=== PATIENT | male | born 1970 | race Caucasian/White ===

== ENCOUNTER 2016-04-10 17:10 | Emergency (ER) | payer BC, OTHER ==
[2016-04-10 17:17] VITALS: RESP 18; TEMP 96.9
[2016-04-10] MEDS ORDERED: CEPHALEXIN 500MG STARTER PACK 4 CAP BTL PO STA (18:48)
[2016-04-10] MEDS ORDERED: DIPH,PERTUS(ACELL)TETVAC-LF 0.5 ML VIAL IM ONE (18:48)
--- NOTE | 2016-04-10 18:59 | ED ---
General Adult HPI - General Chief complaint: Wound/Laceration Stated complaint: Fall/IHS Time Seen by Provider: 04/10/16 17:35 Source: patient, family, RN notes reviewed Mode of arrival: EMS Limitations: no limitations - History of Present Illness Initial comments: Chief complaint and history of present illness a 45-year-old male who reports while on the job slipped on the step going into his truck bumping both anterior tibial surfaces. Presents with a bruise to the right significant laceration to the left measuring 5 inches or 12.5 cm. - Related Data Home Medications Medication Instructions Recorded Confirmed Escitalopram Oxalate [Lexapro] 20 mg PO DAILY 04/10/16 04/10/16 buPROPion HCL [Wellbutrin XL] 300 mg PO DAILY 04/10/16 04/10/16 clonazePAM [KlonoPIN] 0.25 mg PO DAILY 04/10/16 04/10/16 clonazePAM [KlonoPIN] 1 mg PO HS 04/10/16 04/10/16 Previous Rx's Medication Instructions Recorded Cephalexin [Keflex] 500 mg PO Q6HR #20 cap 04/10/16 Ibuprofen [Motrin] 800 mg PO Q8HR PRN #20 tab 04/10/16 Allergies Allergy/AdvReac Type Severity Reaction Status Date / Time Sulfa (Sulfonamide Allergy Unknown Verified 04/10/16 17:17 Antibiotics) Review of Systems ROS Statement: Those systems with pertinent positive or pertinent negative responses have been documented in the HPI. Review of systems no complaint of headache chest pain shortness breath GI/ problems no neuro deficits. Patient is alert and oriented. No other complaints at this time. Past medical problems patient denies any chronic medical problems. Has history of asthma. He is at hernia repair and tonsillectomy. Family history noncontributory is ALLERGIES to sulfa drugs. Encouraged not to smoke ROS Other: All systems not noted in ROS Statement are negative. Past Medical History Past Medical History: Asthma History of Any Multi-Drug Resistant Organisms: None Reported Past Surgical History: Hernia Repair, Tonsillectomy Past Psychological History: No Psychological Hx Reported Smoking Status: Never smoker Past Alcohol Use History: None Reported Past Drug Use History: None Reported General Exam - General Exam Comments Initial Comments: General: The patient is awake and alert, in no distress, and does not appear acutely ill. Presents with a 12 cm laceration distal third left leg. Vital show temperature 96.9 pulse 95 respiratory rate 18 pulse ox 94% on room air blood pressure 130/77 elevated systolic noted patient be advised to follow-up with his family physician. Plus he obviously in pain from his laceration. Eye: Pupils are equal, t, extra-ocular movements are intact; there is normal conjunctiva bilaterally. No signs of icterus. Ears, nose, mouth and throat: There are moist mucous membranes Neck: No complaint of headache. The neck is supple, there is no tenderness . No complaint of neck pain Cardiovascular: There is a regular rate and rhythm. No murmur, rub or gallop is appreciated. No complaint of palpitations Respiratory: Lungs are clear to auscultation, respirations are non-labored, breath sounds are equal. No wheezes, stridor, rales, or rhonchi. Gastrointestinal: Soft, non-distended, non-tender abdomen without masses or organomegaly noted. There is no rebound or guarding present. No abdominal pain Back: There is no tenderness to palpation in the midline. Denies back pain at this time. Musculoskeletal: Positive or laceration distal third left anterior tibial surface. Neurovascular status of foot is intact. Right lower leg bruise without laceration. Neurological: CN II-XII intact, There are no obvious motor or sensory deficits. Coordination appears grossly intact. Speech is normal. Alert and oriented no focal or lateralizing findings Limitations: no limitations Course Vital Signs 04/10/16 04/10/16 04/10/16 17:13 18:32 19:17 Temperature 96.9 F L Pulse Rate 95 96 96 Respiratory 18 16 18 Rate Blood Pressure 130/77 123/75 123/73 O2 Sat by Pulse 94 L 95 95 Oximetry Procedures - Procedures Initial comment: Procedure; sterile technique and 1% lidocaine was used to numb the large laceration measuring 12 cm to the anterior left tibial surface. Wound edges were cleaned with scissors. The wound was irrigated well with normal saline and Betadine. Hemostasis obtained with suture material. Inner layer of 4-0 Vicryl, 5 sutures were placed. Outer layer of approximately 20 mattress style sutures of 3-0 nylon were placed. Mild pressure bandage applied. Patient be told to keep his leg elevated. Bandage to be removed in 2 days. Patient advised take medications as directed return in 12 days to have sutures removed or illicit any signs of infection. Dr. Lawton Medical Decision Making - Medical Decision Making X-ray of the left tib-fib was done AP lateral views and reviewed by radiologist his impression is correlate for cellulitis and edema, follow-up recommended. As read by Dr. Lo. Radiolucency most likely air in the soft tissue from the 12 cm laceration to the anterior tibial surface. Patient be placed on ibuprofen 800 one tablet 3 times daily for pain. And cephalexin 500 4 times a day for one week. Sutures are to be removed in 12 days or earlier should be signs of infection. Disposition Clinical Impression: Laceration of leg Disposition: HOME SELF-CARE Condition: Fair Instructions: Laceration (ED) Additional Instructions: Keep leg elevated. Remove bandage in 2 days. Reports signs of infection. Take cephalexin 504 times daily for 1 week. Report signs of infection to her family doctor or emergency room. Take ibuprofen for pain Prescriptions: Cephalexin [Keflex] 500 mg PO Q6HR #20 cap Ibuprofen [Motrin] 800 mg PO Q8HR PRN #20 tab PRN Reason: Pain Time of Disposition: 19:52
--- NOTE | 2016-04-10 19:20 | XR ---
Left leg HISTORY: Laceration 2 views of the left leg and 4 images There is lucency in the soft tissues present. Bone mineralization, joint spaces and alignment are librado ntained. No radiopaque foreign body. IMPRESSION: Correlate for cellulitis and edema, follow-up recommended.
[2016-04-10 19:45] VITALS: BP 123/73; PULSE 96
[2016-04-10] MEDS ORDERED: IBUPROFEN 800 MG TAB PO STA (19:51)
== END 2016-04-10 20:10 | disposition home or self-care (01) ==
LOC: EC 17:10
DX: S81.812A Laceration without foreign body, left lower leg, initial encounter (principal); S80.11XA Contusion of right lower leg, initial encounter; W22.09XA Striking against other stationary object, initial encounter; Z23 Encounter for immunization; Z79.899 Other long term (current) drug therapy; Z88.2 Allergy status to sulfonamides
CPT/HCPCS: 12034; 90471; 90715; 99283

== ENCOUNTER 2016-04-16 11:01 | Inpatient (IN) | payer BC, OTHER ==
[2016-04-16] MEDS ORDERED: IV VANCOMYCIN PER PHARMACY 1 EACH MISC MISCELLANE PRN (11:39)
[2016-04-16] MEDS ORDERED: SODIUM CHLORIDE 0.9% 1,000 ML IV STA ×2 (11:39)
--- NOTE | 2016-04-16 11:48 | ED ---
General Adult HPI - General Chief complaint: Extremity Injury, Lower Stated complaint: leg infection Time Seen by Provider: 04/16/16 11:28 Source: patient, RN notes reviewed, old records reviewed Mode of arrival: ambulatory Limitations: no limitations - History of Present Illness Initial comments: This is a 45-year-old male ER for evaluation. The patient presents for evaluation of wound care bilateral lower extremity injury. Patient has no specific medical is medical history of diabetes. Patient coming in after a slip and fall, sustaining laceration to anterior schwab, he did have lacerations repaired with sutures, patient was taking antibiotics but over the weekend his legs became increased in both swelling and redness, and became warm to touch. Patient follow-up with wound care today and was sent to emergency room for further evaluation and management. Patient denies any generalized fevers. No is real pain but states the swelling and increasing redness have him concerned. No drainage from either site - Related Data Home Medications Medication Instructions Recorded Confirmed Escitalopram Oxalate [Lexapro] 20 mg PO DAILY 04/10/16 04/16/16 buPROPion HCL [Wellbutrin XL] 300 mg PO DAILY 04/10/16 04/16/16 clonazePAM [KlonoPIN] 0.5 mg PO QAM 04/10/16 04/16/16 Amoxic-Pot Clav 875-125Mg 1 tab PO Q12H 04/16/16 04/16/16 [Augmentin 875-125] clonazePAM [KlonoPIN] 1 mg PO HS 04/16/16 04/16/16 Previous Rx's Medication Instructions Recorded Ibuprofen [Motrin] 800 mg PO Q8HR PRN #20 tab 04/10/16 Allergies Allergy/AdvReac Type Severity Reaction Status Date / Time Sulfa (Sulfonamide Allergy Unknown Verified 04/16/16 11:40 Antibiotics) Review of Systems ROS Statement: Those systems with pertinent positive or pertinent negative responses have been documented in the HPI. ROS Other: All systems not noted in ROS Statement are negative. Past Medical History Past Medical History: Asthma History of Any Multi-Drug Resistant Organisms: None Reported Past Surgical History: Hernia Repair, Tonsillectomy Past Psychological History: No Psychological Hx Reported Smoking Status: Never smoker Past Alcohol Use History: None Reported Past Drug Use History: None Reported General Exam Limitations: no limitations General appearance: alert, in no apparent distress Head exam: Present: atraumatic, normocephalic, normal inspection Eye exam: Present: normal appearance, PERRL, EOMI. Absent: scleral icterus, conjunctival injection, periorbital swelling ENT exam: Present: normal exam, mucous membranes moist Neck exam: Present: normal inspection. Absent: tenderness, meningismus, lymphadenopathy Respiratory exam: Present: normal lung sounds bilaterally. Absent: respiratory distress, wheezes, rales, rhonchi, stridor Cardiovascular Exam: Present: regular rate, normal rhythm, normal heart sounds. Absent: systolic murmur, diastolic murmur, rubs, gallop, clicks GI/Abdominal exam: Present: soft, normal bowel sounds. Absent: distended, tenderness, guarding, rebound, rigid Extremities exam: Present: normal inspection, full ROM, normal capillary refill , other (Bilateral extremity warm and erythema anteriorly, sutures in place and left schwab, wound open and healing of the right chin, no drainage). Absent: tenderness, pedal edema, joint swelling, calf tenderness Back exam: Present: normal inspection Neurological exam: Present: alert, oriented X3, CN II-XII intact Psychiatric exam: Present: normal affect, normal mood Skin exam: Present: warm, dry, intact, normal color. Absent: rash Course Vital Signs 04/16/16 11:20 Temperature 98.6 F Pulse Rate 93 Respiratory 18 Rate Blood Pressure 166/75 O2 Sat by Pulse 96 Oximetry - Reevaluation(s) Reevaluation #1: 04/16/16 11:46 Patient's prior ER visit is reviewed, suture care, antibiotic treatment Medical Decision Making - Medical Decision Making 45 milled ER for evaluation of erythema the legs, patient does have increasing infection and cellulitis of suture sites, patient be admitted for IV antibiotics and wound care - Lab Data Result diagrams: 04/16/16 12:31 - Radiology Data Radiology results: report reviewed (US BL LE no dvt, XR tib fib is negative for air), image reviewed Disposition Clinical Impression: Bilateral lower leg cellulitis, Traumatic open wound of left lower leg with infection, Laceration of leg Disposition: ADMITTED IP TO THIS [facility] Condition: Good
[2016-04-16] MEDS ORDERED: VANCOMYCIN 2,500 MG in SODIUM CHLORIDE 0.9% 500 ML IVPB ONE (12:00)
[2016-04-16 12:40] LABS: Basophils % (A) 0 %; CH 29.4; CHCM 32.7; Eosinophils # (A) 0.3 k/uL (0-0.7); Eosinophils % (A) 4 %; HCT 40.3 % (39.0-53.0); HDW 2.55; HGB 12.8 gm/dL (13.0-17.5); Luc # (Auto) 0.17; Luc % (Auto) 2; Lymphocytes # (A) 0.8 k/uL (1.0-4.8); Lymphocytes % (A) 11 %; MCH 28.8 pg (25.0-35.0); MCHC 31.8 g/dL (31.0-37.0); MCV 90.5 fL (80.0-100.0); Monocytes # (A) 0.6 k/uL (0-1.0); Monocytes % (A) 8 %; Neutrophils # (A) 5.4 k/uL (1.3-7.7); Neutrophils % (A) 74 %; RBC 4.46 m/uL (4.30-5.90); WBC 7.3 k/uL (3.8-10.6); WBC (Perox) 6.78
[2016-04-16 12:50] LABS: Anion Gap 10 mmol/L; Calcium 8.9 mg/dL (8.4-10.2); Carbon Dioxide 26 mmol/L (22-30); Chloride 106 mmol/L (98-107); Glucose 88 mg/dL (74-99); Non-African American GFR(MDRD) >60 (>60 ml/min/1.73 sqM); Sodium 142 mmol/L (137-145); Total Bilirubin 0.8 mg/dL (0.2-1.3); Total Protein 6.9 g/dL (6.3-8.2)
[2016-04-16 12:58] LABS: Phosphorous 3.8 mg/dL (2.5-4.5); Potassium 4.8 mmol/L (3.5-5.1)
[2016-04-16 12:59] LABS: ALT 43 U/L (21-72); AST 27 U/L (17-59); Alkaline Phosphatase 84 U/L (38-126); Blood Urea Nitrogen 15 mg/dL (9-20)
[2016-04-16 13:11] LABS: Creatine Kinase MB 0.7 ng/mL (0.0-2.4)
--- NOTE | 2016-04-16 15:41 | XR ---
EXAMINATION TYPE: XR tibia fibula bilateral DATE OF EXAM: 04/16/2016 3:34 PM CLINICAL HISTORY: Laceration injury one week ago with bilateral pain and swelling TECHNIQUE: Two views of the bilateral legs are obtained. COMPARISON: Left leg x-ray April 10, 2016. FINDINGS: There is no acute fracture or dislocation seen in either tibia or fibula. There is medial tibiofemoral compartment degenerative change in both knees with joint space loss and spurring, right worse than left. Calcification distal medial femoral condyle likely reflects old Brandon-Stieda in jury on the right. Mild to moderate joint space loss patellofemoral compartments bilaterally is seen. Some chronic periosteal reaction posterior tibial proximal diaphysis on the right is noted. Possible product of venous stasis. Bilateral ankle joints are felt within normal limits. Moderate to severe s ymmetric diffuse subcutaneous edema is present bilaterally. IMPRESSION: There is no acute or subacute fracture or dislocation seen in either tibia or fibula.
--- NOTE | 2016-04-16 16:23 | US ---
EXAMINATION TYPE: US venous doppler duplex LE DATE OF EXAM: 04/16/2016 4:06 PM COMPARISON: NONE CLINICAL HISTORY: Pain. Anterior calf wounds-- fell on ice and now infected, no hx of blood clots and not on any blood thinners SIDE PERFORMED: Bilateral VESSELS IMAGED: External Iliac Vein (EIV) Common Femoral Vein Deep Femoral Vein Greater Saphenous Vein * Femoral Vein Popliteal Vein Proximal Calf Veins (* superficial vessels) TECHNOLOGIST IMPRESSION: Right Leg: appears negative for DVT Left Leg: appears negative for DVT Satisfactory color flow, phasicity, and compressibility is seen in the above levels in the bilateral lower extremities. IMPRESSION: No ultrasound evidence for acute DVT in either lower extremity.
[2016-04-16] MEDS ORDERED: IBUPROFEN 800 MG TAB PO SCH (18:00)
[2016-04-16] MEDS: VANCOMYCIN 2,250 MG in SODIUM CHLORIDE 0.9% 500 ML IVPB SCH (20:24)
[2016-04-17] MEDS: VANCOMYCIN 2,250 MG in SODIUM CHLORIDE 0.9% 500 ML IVPB SCH ×3 (04:36→20:09)
[2016-04-17] MEDS: ENOXAPARIN 40 MG/0.4 ML SYRINGE SQ SCH (08:25)
--- NOTE | 2016-04-17 13:47 | HP ---
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 Patient was given Keflex by ER physician and was sent home and patient was also started on Augmentin. Patient's symptoms worsened and patient had increased redness in bilateral lower limb area, increased worsening cellulitis because of which patient came to the ER and patient is admitted for failure outpatient therapy for cellulitis and patient had a Doppler of the lower extremities, which did not show any DVT. It did not mention anything about inguinal lymph nodes. On clinical exam, patient does not have any inguinal lymph nodes either. Patient had a fever. Patient had features of sepsis when he came in and patient on IV vancomycin covering staph aureus. Patient had a little bit of improvement in the redness and swelling and once on the right side patient apparently had a serous drainage coming out of it. As of now area is dry7. If he has any serous drainage, will obtain cultures from that area and will continue with antibiotics for one more day, possibility of discharge tomorrow on Bactrim, depending on his improvement of fever. REVIEW OF SYSTEMS: DERMATOLOGIC: As described in HPI. CONSTITUTIONAL: No fever, no malaise, no fatigue. HEENT: No recent visual problems or hearing problems. Denied any sore throat. CARDIOVASCULAR: No chest pain, orthopnea, PND, no palpitations, no syncope. PULMONARY: No shortness of breath, no cough, no hemoptysis. GASTROINTESTINAL: No diarrhea, no nausea, no vomiting, no abdominal pain. Normoactive bowel sounds. NEUROLOGICAL: No headaches, no weakness, no numbness. HEMATOLOGICAL: Denies any bleeding or petechiae. GENITOURINARY: Denies any burning micturition, frequency, or urgency. MUSCULOSKELETAL/RHEUMATOLOGICAL: Denies any joint pain, swelling, or any muscle pain. ENDOCRINE: Denies any polyuria or polydipsia. The rest of the 14 point review of systems is negative. Home medications are: 1. Risperdal. 2. Augmentin. 3. Clonazepam. 4. Motrin. ALLERGIES: Allergic to SULFA DRUGS. PAST MEDICAL HISTORY: Asthma, obesity, hernia repair in the past, tonsillectomy. SOCIAL HISTORY: Denied any smoking, alcohol abuse or any drug abuse. FAMILY HISTORY: Significant for CVA/TIA. PHYSICAL EXAMINATION: Temperature 97.0, 24 hour T-max is 100.1, pulse of 92, respiratory rate of 20, blood pressure is 135/74, saturating at 96% on room air. DERMATOLOGIC: Patient has bilateral mid-schwab cellulitis with lacerations. On left side, patient had sutures with a long laceration. On the right side, patient has a partial skin breakdown with primary healing without any drainage. Patient does have redness in both the areas of lacerations with localized of temperature. GENERAL: The patient is alert and oriented x3, not in any acute distress. Well developed, well nourished. HEENT: Pupils are round and equally reacting to light. EOMI. No scleral icterus. No conjunctival pallor. Normocephalic, atraumatic. No pharyngeal erythema. No thyromegaly. CARDIOVASCULAR: S1 and S2 present. No murmurs, rubs, or gallops. PULMONARY: Chest is clear to auscultation, no wheezing or crackles. ABDOMEN: Soft, nontender, nondistended, normoactive bowel sounds. No palpable organomegaly. MUSCULOSKELETAL: No joint swelling or deformity. EXTREMITIES: No cyanosis, clubbing, or pedal edema. NEUROLOGICAL: Gross neurological examination did not reveal any focal deficits. LABORATORY DATA: CBC, CMP essentially within normal limits. ASSESSMENT AND PLAN: 1. Traumatic laceration followed by cellulitis of bilateral lower extremity, failed outpatient therapy. Patient is on IV antibiotics as mentioned above, vancomycin, which will be continued. If patient has improvement, patient will be discharged on Bactrim tomorrow. Hold off on Keflex and Augmentin that he was on. 2. Depression for which home medications will be continued. 3. Obesity, dietary counseling was provided.
[2016-04-17] MEDS: IBUPROFEN 800 MG TAB PO PRN (15:34)
[2016-04-17] MEDS ORDERED: VANCOMYCIN TROUGH DUE 1 EACH MISC MISCELLANE ONE (19:00)
[2016-04-18] MEDS: VANCOMYCIN 2,250 MG in SODIUM CHLORIDE 0.9% 500 ML IVPB SCH (04:07)
[2016-04-18 08:03] VITALS: BP 121/72; PULSE 96; RESP 18; TEMP 97.5
[2016-04-18] MEDS: ENOXAPARIN 40 MG/0.4 ML SYRINGE SQ SCH (08:10)
[2016-04-18] MEDS: IBUPROFEN 800 MG TAB PO PRN (08:13)
[2016-04-18] MEDS ORDERED: VANCOMYCIN 2,000 MG in SODIUM CHLORIDE 0.9% 500 ML IVPB SCH (12:00)
--- NOTE | 2016-04-19 08:00 | DS ---
DATE OF ADMISSION: 04/16/2016 DATE OF DISCHARGE: 04/18/2016 The patient is a 45-year-old admitted with bilateral schwab area of cellulitis, which improved with IV vancomycin and patient most probably has Staphylococcal cellulitis, but I cannot completely rule out strep cellulitis, because of which I asked him to go ahead and continue his Augmentin at home and take it for a week and along with that I will go ahead and give him double- strength Bactrim 2 tablets twice a day because of his weight. Patient will follow with his primary care physician Dr. Martina De La Fuente as an outpatient. Patient is otherwise clinically doing well, improved cellulitis in bilateral lower extremities. Patient was seen and examined on the day of discharge. Vitals are stable. PHYSICAL EXAMINATION: GENERAL: The patient is alert and oriented x3, not in any acute distress. Well developed, well nourished. HEENT: Pupils are round and equally reacting to light. EOMI. No scleral icterus. No conjunctival pallor. Normocephalic, atraumatic. No pharyngeal erythema. No thyromegaly. CARDIOVASCULAR: S1 and S2 present. No murmurs, rubs, or gallops. PULMONARY: Chest is clear to auscultation, no wheezing or crackles. ABDOMEN: Soft, nontender, nondistended, normoactive bowel sounds. No palpable organomegaly. MUSCULOSKELETAL: No joint swelling or deformity. EXTREMITIES: No cyanosis, clubbing, or pedal edema. NEUROLOGICAL: Gross neurological examination did not reveal any focal deficits. SKIN: No rashes. BILATERAL LEGS: Bilateral schwab cellulitis improved significantly. Patient has very little redness. ASSESSMENT AND PLAN: 1. Traumatic laceration complicated by cellulitis. 2. Depression. 3. Obesity. Patient will be discharged today. Please refer to my depart summary for further details of discharge medications. Activity as tolerated. Low calorie diet. Follow with Dr. Martina De La Fuente on the 23 of April at 11 a.m.
== END 2016-04-18 14:08 | disposition home or self-care (01) | DRG 603 ==
LOC: EC 11:01 → 4MS4W 11:48
PROVIDERS: ADMIT Hospitalist; ATTEND Hospitalist
DX: L03.116 Cellulitis of left lower limb (principal); S81.811A Laceration without foreign body, right lower leg, initial encounter; F32.9 Major depressive disorder, single episode, unspecified; S81.812A Laceration without foreign body, left lower leg, initial encounter; L03.115 Cellulitis of right lower limb; B95.8 Unspecified staphylococcus as the cause of diseases classified elsewhere; J45.909 Unspecified asthma, uncomplicated; Z88.2 Allergy status to sulfonamides; Z79.1 Long term (current) use of non-steroidal anti-inflammatories (NSAID); Z79.899 Other long term (current) drug therapy; Z82.3 Family history of stroke; Z71.3 Dietary counseling and surveillance; W01.0XXA Fall on same level from slipping, tripping and stumbling without subsequent striking against object, initial encounter
CPT/HCPCS: 80053; 80202; 82550; 82553; 83735; 84100; 85025; 87040; 87070; 87075; 87205; 93970; 96365; 99285

== ENCOUNTER → 2016-05-29 | Outpatient (CLI) | payer BC ==
[2016-05-29 09:34] VITALS: BMI 52.4
== END | disposition home or self-care (01) ==
LOC: MNTWWP 09:06
PROVIDERS: ATTEND Surgery
DX: M86.8X8 Other osteomyelitis, other site (principal); E66.9 Obesity, unspecified
CPT/HCPCS: 97802

== ENCOUNTER → 2016-05-31 | Outpatient (CLI) | payer BC, OTHER ==
--- NOTE | 2016-06-06 12:52 | P.ARTDOP ---
Arterial Doppler LOWER EXTREMITY ARTERIAL DOPPLER: DATE OF SERVICE: 05/31/2016 Reason for study: Bilateral lower leg ulcers. Doppler waveforms: Multiphasic bilaterally throughout. Pulse volume recording: Normal configuration. Pressure gradients: None. Ankle-brachial indices: Greater than 1 bilaterally. Toe pressures: [] on the right, [] on the left Impression: Normal limited study.
== END | disposition home or self-care (01) ==
LOC: RADUSWWP 07:45
PROVIDERS: ATTEND Surgery
DX: M79.604 Pain in right leg (principal); M79.605 Pain in left leg
CPT/HCPCS: 93923

== ENCOUNTER → 2016-06-07 | Outpatient (CLI) | payer BC, OTHER ==
--- NOTE | 2016-06-07 14:26 | NM ---
EXAMINATION TYPE: NM bone 3 phase DATE OF EXAM: 06/07/2016 1:27 PM COMPARISON: NONE HISTORY: Bilateral leg sores. Triple phase bone scintigraphy was performed following the injection of26 mCi Tc 99m MDP. Immediate images and 5 hours post injection images acquired. FINDINGS: Flow and pool images show symmetric distribution of activity. There is some increased activity at the level of the medial tibial plateau of the right tibia. There is increased activity about the left an kle. These findings are likely degenerative in nature. IMPRESSION: ACTIVITY DESCRIBED LIKELY DEGENERATIVE. I DO NOT SEE EVIDENCE OF OSTEOMYELITIS.
== END | disposition home or self-care (01) ==
LOC: RADNMMAIN 07:41
PROVIDERS: ATTEND Surgery
DX: M86.8X8 Other osteomyelitis, other site (principal)
CPT/HCPCS: 78315; A9503

== ENCOUNTER 2017-10-14 10:03 | Emergency (ER) | payer BC, OTHER ==
[2017-10-14] MEDS ORDERED: IBUPROFEN 600 MG TAB PO STA (11:30)
[2017-10-14] MEDS ORDERED: ACETAMINOPHEN TAB 500 MG TAB PO STA (11:30)
[2017-10-14] MEDS ORDERED: PIPERACILLIN-TAZOBACTAM 3.375 GM in DEXTROSE/WATER 1 50ML.BAG IVPB STA (11:30)
--- NOTE | 2017-10-14 11:34 | ED ---
General Adult HPI - General Chief complaint: Fever Stated complaint: Weak/chills Time Seen by Provider: 10/14/17 10:10 Source: patient, RN notes reviewed Mode of arrival: wheelchair Limitations: no limitations - History of Present Illness Initial comments: This is a 46-year-old male who presents emergency Department complaining of body aches a fever and left leg pain. Patient states that it started on night he had body aches felt real warm had some chills but after he got up he felt fine he felt fine Saturday and Saturday and all of a sudden again at 4 AM this morning he started having body aches and chills and vomited a couple times and complains that his left leg is tender to touch and red. The redness is on the anterior surface. He states no matter where you touch on his leg does hurt. Patient denies any cough patient denies any abdominal pain. Patient denies any current nausea. Patient denies headache patient denies numbness weakness. Patient denies any neck stiffness. Patient denies any ear pain patient denies any sore throat. Patient denies any dysuria hematuria urinary frequency. - Related Data Home Medications Medication Instructions Recorded Confirmed Escitalopram Oxalate [Lexapro] 20 mg PO DAILY 04/10/16 10/14/17 buPROPion HCL [Wellbutrin XL] 300 mg PO DAILY 04/10/16 10/14/17 clonazePAM [KlonoPIN] 0.5 mg PO QAM 04/10/16 10/14/17 clonazePAM [KlonoPIN] 1 mg PO HS PRN 04/16/16 10/14/17 Lisinopril [Zestril] 10 mg PO DAILY 10/14/17 10/14/17 Previous Rx's Medication Instructions Recorded Amoxicillin/Potassium Clav 1 each PO Q12HR #28 tab 10/14/17 [Augmentin 875-125 Tablet] Allergies Allergy/AdvReac Type Severity Reaction Status Date / Time Sulfa (Sulfonamide Allergy Unknown Verified 10/14/17 11:34 Antibiotics) Review of Systems ROS Statement: Those systems with pertinent positive or pertinent negative responses have been documented in the HPI. ROS Other: All systems not noted in ROS Statement are negative. Past Medical History Past Medical History: Asthma, Renal Disease Additional Past Medical History / Comment(s): Nephrolithiasis. wounds bilat LE pretibs from fall History of Any Multi-Drug Resistant Organisms: MRSA Date of last positivie culture/infection: 07/31/16 MDRO Source:: RIGHT LEG Past Surgical History: Hernia Repair, Tonsillectomy Additional Past Surgical History / Comment(s): Lithotripsy, bilateral inguinal hernia repain (one side done twice). Past Psychological History: Anxiety, Panic Disorder Smoking Status: Never smoker Past Alcohol Use History: None Reported Past Drug Use History: None Reported - Past Family History Mother Family Medical History: CVA/TIA Father Additional Family Medical History / Comment(s): Father in a snowmobile accident. General Exam - General Exam Comments Initial Comments: GENERAL: Patient is well-developed and well-nourished. Patient is nontoxic and well- hydrated and is in mild distress. ENT: Neck is soft and supple. No significant lymphadenopathy is noted. Oropharynx is clear. Moist mucous membranes. Neck has full range of motion without eliciting any pain. EYES: The sclera were anicteric and conjunctiva were pink and moist. Extraocular movements were intact and pupils were equal round and reactive to light. Eyelids were unremarkable. PULMONARY: Unlabored respirations. Good breath sounds bilaterally. No audible rales rhonchi or wheezing was noted. CARDIOVASCULAR: There is a regular rate and rhythm without any murmurs gallops or rubs. ABDOMEN: Soft and nontender with normal bowel sounds. No palpable organomegaly was noted. There is no palpable pulsatile mass. SKIN: Skin is clear with no lesions or rashes and otherwise unremarkable. NEUROLOGIC: Patient is alert and oriented x3. Cranial nerves II through XII are grossly intact. Motor and sensory are also intact. Normal speech, volume and content. Symmetrical smile. MUSCULOSKELETAL: Normal extremities with adequate strength and full range of motion. Left leg on the proximal medial aspect is erythematous and warm there is also tenderness at the calf. LYMPHATICS: No significant lymphadenopathy is noted PSYCHIATRIC: Normal psychiatric evaluation. Normal interpersonal interactions appears functionally intact in deals appropriately with others. No signs of depression. No signs of anxiety. Limitations: no limitations Course Vital Signs 10/14/17 10:11 Temperature 101.3 F H Pulse Rate 105 H Respiratory 20 Rate Blood Pressure 110/58 O2 Sat by Pulse 96 Oximetry Medical Decision Making - Medical Decision Making EKG shows sinus tachycardia at 102 bpm CA interval 146 dresses under QT intervals 352 QTC is 458. Patient's EKG shows some Q waves in leads [address] segment elevation or depression. Ultrasound of the leg showed no DVT. Chest x-ray showed no acute infiltrate. I gave the patient Zosyn in the ER. - Lab Data Result diagrams: 10/14/17 11:55 10/14/17 11:55 Lab Results 10/14/17 10/14/17 10/14/17 Range/Units 11:55 11:55 11:55 WBC 17.4 H (3.8-10.6) k/uL RBC 4.76 (4.30-5.90) m/uL Hgb 13.8 (13.0-17.5) gm/dL Hct 41.9 (39.0-53.0) % MCV 88.1 (80.0-100.0) fL MCH 29.1 (25.0-35.0) pg MCHC 33.0 (31.0-37.0) g/dL RDW 13.0 (11.5-15.5) % Plt Count 212 (150-450) k/uL Neutrophils % 92 % Lymphocytes % 2 % Monocytes % 5 % Eosinophils % 0 % Basophils % 0 % Neutrophils # 15.9 H (1.3-7.7) k/uL Lymphocytes # 0.4 L (1.0-4.8) k/uL Monocytes # 0.9 (0-1.0) k/uL Eosinophils # 0.1 (0-0.7) k/uL Basophils # 0.0 (0-0.2) k/uL PT (9.0-12.0) sec INR (<1.2) APTT (22.0-30.0) sec Sodium 136 L (137-145) mmol/L Potassium 4.0 (3.5-5.1) mmol/L Chloride 105 (98-107) mmol/L Carbon Dioxide 23 (22-30) mmol/L Anion Gap 8 mmol/L BUN 17 (9-20) mg/dL Creatinine 0.70 (0.66-1.25) mg/dL Est GFR (CKD-EPI)AfAm >90 (>60 ml/min/1.73 sqM) Est GFR (CKD-EPI)NonAf >90 (>60 ml/min/1.73 sqM) Glucose 122 H (74-99) mg/dL Plasma Lactic Acid Tonny 0.8 (0.7-2.0) mmol/L Calcium 8.8 (8.4-10.2) mg/dL Total Bilirubin 1.0 (0.2-1.3) mg/dL AST 18 (17-59) U/L ALT 33 (21-72) U/L Alkaline Phosphatase 65 (38-126) U/L Total Protein 6.0 L (6.3-8.2) g/dL Albumin 3.5 (3.5-5.0) g/dL Urine Color Urine Appearance (Clear) Urine pH (5.0-8.0) Ur Specific [place] (1.001-1.035) Urine Protein (Negative) Urine Glucose (UA) (Negative) Urine Ketones (Negative) Urine Blood (Negative) Urine Nitrite (Negative) Urine Bilirubin (Negative) Urine Urobilinogen (<2.0) mg/dL Ur Leukocyte Esterase (Negative) Urine RBC (0-5) /hpf Urine WBC (0-5) /hpf Amorphous Sediment (None) /hpf Urine Bacteria (None) /hpf Urine Mucus (None) /hpf 10/14/17 10/14/17 Range/Units 11:55 12:16 WBC (3.8-10.6) k/uL RBC (4.30-5.90) m/uL Hgb (13.0-17.5) gm/dL Hct (39.0-53.0) % MCV (80.0-100.0) fL MCH (25.0-35.0) pg MCHC (31.0-37.0) g/dL RDW (11.5-15.5) % Plt Count (150-450) k/uL Neutrophils % % Lymphocytes % % Monocytes % % Eosinophils % % Basophils % % Neutrophils # (1.3-7.7) k/uL Lymphocytes # (1.0-4.8) k/uL Monocytes # (0-1.0) k/uL Eosinophils # (0-0.7) k/uL Basophils # (0-0.2) k/uL PT 11.5 (9.0-12.0) sec INR 1.2 H (<1.2) APTT 24.6 (22.0-30.0) sec Sodium (137-145) mmol/L Potassium (3.5-5.1) mmol/L Chloride (98-107) mmol/L Carbon Dioxide (22-30) mmol/L Anion Gap mmol/L BUN (9-20) mg/dL Creatinine (0.66-1.25) mg/dL Est GFR (CKD-EPI)AfAm (>60 ml/min/1.73 sqM) Est GFR (CKD-EPI)NonAf (>60 ml/min/1.73 sqM) Glucose (74-99) mg/dL Plasma Lactic Acid Tonny (0.7-2.0) mmol/L Calcium (8.4-10.2) mg/dL Total Bilirubin (0.2-1.3) mg/dL AST (17-59) U/L ALT (21-72) U/L Alkaline Phosphatase (38-126) U/L Total Protein (6.3-8.2) g/dL Albumin (3.5-5.0) g/dL Urine Color Yellow Urine Appearance Clear (Clear) Urine pH 6.5 (5.0-8.0) Ur Specific [place] 1.023 (1.001-1.035) Urine Protein 1+ H (Negative) Urine Glucose (UA) Negative (Negative) Urine Ketones Negative (Negative) Urine Blood Moderate H (Negative) Urine Nitrite Negative (Negative) Urine Bilirubin Negative (Negative) Urine Urobilinogen <2.0 (<2.0) mg/dL Ur Leukocyte Esterase Negative (Negative) Urine RBC 92 H (0-5) /hpf Urine WBC 1 (0-5) /hpf Amorphous Sediment Rare H (None) /hpf Urine Bacteria Rare H (None) /hpf Urine Mucus Few H (None) /hpf Disposition Clinical Impression: Left leg cellulitis, Hematuria Disposition: HOME SELF-CARE Instructions: Cellulitis (ED), Hematuria (ED) Prescriptions: Amoxicillin/Potassium Clav [Augmentin 875-125 Tablet] 1 each PO Q12HR #28 tab Is patient prescribed a controlled substance at d/c from ED?: No Referrals: Martina De La Fuente DO [Primary Care Provider] - 1-2 days Time of Disposition: 13:38
[2017-10-14] MEDS: SODIUM CHLORIDE 0.9% 500 ML IV SCH (12:09)
[2017-10-14 12:13] LABS: ALT 33 U/L (21-72); AST 18 U/L (17-59); Albumin 3.5 g/dL (3.5-5.0); Alkaline Phosphatase 65 U/L (38-126); Anion Gap 8 mmol/L; Blood Urea Nitrogen 17 mg/dL (9-20); Calcium 8.8 mg/dL (8.4-10.2); Carbon Dioxide 23 mmol/L (22-30); Chloride 105 mmol/L (98-107); Glucose 122 mg/dL (74-99); Sodium 136 mmol/L (137-145)
[2017-10-14 12:16] LABS: INR 1.2 (<1.2); Partial Thromboplastin Time 24.6 sec (22.0-30.0); Prothrombin Time 11.5 sec (9.0-12.0)
[2017-10-14 12:21] LABS: Basophils % (A) 0 %; Eosinophils # (A) 0.1 k/uL (0-0.7); Eosinophils % (A) 0 %; HCT 41.9 % (39.0-53.0); HGB 13.8 gm/dL (13.0-17.5); Lymphocytes # (A) 0.4 k/uL (1.0-4.8); Lymphocytes % (A) 2 %; MCH 29.1 pg (25.0-35.0); MCV 88.1 fL (80.0-100.0); Mean Platelet Volume 6.4; Monocytes # (A) 0.9 k/uL (0-1.0); Monocytes % (A) 5 %; Neutrophils # (A) 15.9 k/uL (1.3-7.7); Neutrophils % (A) 92 %; Platelet Count 212 k/uL (150-450); RBC 4.76 m/uL (4.30-5.90); WBC 17.4 k/uL (3.8-10.6)
--- NOTE | 2017-10-14 12:31 | XR ---
EXAMINATION TYPE: XR chest 2V DATE OF EXAM: 10/14/2017 COMPARISON: NONE HISTORY: Fever, vomiting, weakness, and lower extremity swelling TECHNIQUE: Frontal and lateral views of the chest are obtained. FINDINGS: There is minimal linear left basilar subsegmental atelectasis. There is no focal air space opacity, pleural effusion, or pneumothorax seen. The cardiac silhouette size is upper limits of nor mal. The osseous structures are grossly intact. IMPRESSION: Minimal left basilar subsegmental atelectasis, otherwise no acute cardiopulmonary proces s.
[2017-10-14 12:37] LABS: Amorphous Sediment,Urine Rare /hpf; Appearance,Urine Clear (Clear); Bacteria,Urine Rare /hpf; Bilirubin,Urine Negative (Negative); Blood,Urine Moderate (Negative); Color,Urine Yellow; Glucose,Urine (UA) Negative (Negative); Ketones,Urine Negative (Negative); Leukocyte Esterase,Urine Negative (Negative); Mucus,Urine Few /hpf; Nitrite,Urine Negative (Negative); PH, Urine 6.5 (5.0-8.0); Protein,Urine 1+ (Negative); RBC,Urine 92 /hpf (0-5); Specific Gravity,Urine 1.023 (1.001-1.035); Urobilinogen,Urine <2.0 mg/dL (<2.0); WBC,Urine 1 /hpf (0-5)
--- NOTE | 2017-10-14 12:55 | US ---
EXAMINATION TYPE: US venous doppler duplex LE LT DATE OF EXAM: 10/14/2017 12:41 PM COMPARISON: NONE CLINICAL HISTORY: 45-year-old male Pain. Read, swollen left leg, fever, chills, morbidly obese SIDE PERFORMED: Left TECHNIQUE: The lower extremity deep venous system is examined utilizing real time linear array sonog ayaz with graded compression, doppler sonography and color-flow sonography. FINDINGS: VESSELS IMAGED: External Iliac Vein (EIV) Common Femoral Vein Deep Femoral Vein Greater Saphenous Vein * Femoral Vein Popliteal Vein Small Saphenous Vein * Proximal Calf Veins (* superficial vessels) Left Leg: Appears negative for DVT IMPRESSION: No evidence for DVT within the left lower extremity imaged from the groin to the upper calf.
[2017-10-14] MEDS ORDERED: AMOXIC-POT CLAV 875-125MG 1 EACH TAB PO STA (13:57)
[2017-10-14] MEDS ORDERED: cefTRIAXone IN SWFI 1,000 MG/10 ML SYRINGE IVP STA (13:58)
[2017-10-14 14:02] VITALS: PULSE 89; RESP 18; TEMP 97.8
[2017-10-14 14:23] VITALS: BP 124/66
== END 2017-10-14 14:22 | disposition home or self-care (01) ==
LOC: EC 10:03
DX: L03.116 Cellulitis of left lower limb (principal); R31.9 Hematuria, unspecified; R11.10 Vomiting, unspecified; Z79.899 Other long term (current) drug therapy; F41.0 Panic disorder [episodic paroxysmal anxiety]; Z86.14 Personal history of Methicillin resistant Staphylococcus aureus infection; Z88.2 Allergy status to sulfonamides; R00.0 Tachycardia, unspecified
CPT/HCPCS: 36415; 93005; 80053; 83605; 85025; 85610; 85730; 81001; 87040; 87086; 71046; 93971; 99284; 96365; 96366; 96375; J0696; J2543

== ENCOUNTER 2017-10-15 18:51 | Inpatient (IN) | payer BC, OTHER ==
[2017-10-15] MEDS ORDERED: VANCOMYCIN IV PER PHARMACY 1 EACH MISC MISCELLANE PRN (19:58)
[2017-10-15] MEDS ORDERED: SODIUM CHLORIDE 0.9% 1,000 ML IV STA (20:00)
[2017-10-15] MEDS ORDERED: IBUPROFEN 600 MG TAB PO STA (20:02)
--- NOTE | 2017-10-15 20:02 | ED ---
General Adult HPI - General Chief complaint: Extremity Injury, Lower Stated complaint: cellulitis recheck Time Seen by Provider: 10/15/17 19:44 Source: patient, RN notes reviewed Mode of arrival: wheelchair Limitations: no limitations - History of Present Illness Initial comments: This is a 46-year-old male who presents to the emergency department with chief complaint of worsening cellulitis. Patient was seen here in the emergency department yesterday and diagnosed with left lower extremity cellulitis. Patient was discharged home with Augmentin. Patient states that the pain and redness of the left leg is significantly spread. He reports increased body aches and chills. He states he has been febrile. Denies any chest pain or shortness of breath, abdominal pain, nausea or vomiting, diarrhea or constipation, numbness or tingling. Patient denies any recent injuries or trauma. - Related Data Home Medications Medication Instructions Recorded Confirmed Escitalopram Oxalate [Lexapro] 20 mg PO DAILY 04/10/16 10/14/17 buPROPion HCL [Wellbutrin XL] 300 mg PO DAILY 04/10/16 10/14/17 clonazePAM [KlonoPIN] 0.5 mg PO QAM 04/10/16 10/14/17 clonazePAM [KlonoPIN] 1 mg PO HS PRN 04/16/16 10/14/17 Lisinopril [Zestril] 10 mg PO DAILY 10/14/17 10/14/17 Previous Rx's Medication Instructions Recorded Amoxicillin/Potassium Clav 1 each PO Q12HR #28 tab 10/14/17 [Augmentin 875-125 Tablet] Allergies Allergy/AdvReac Type Severity Reaction Status Date / Time Sulfa (Sulfonamide Allergy Unknown Verified 10/14/17 11:34 Antibiotics) Review of Systems ROS Statement: Those systems with pertinent positive or pertinent negative responses have been documented in the HPI. ROS Other: All systems not noted in ROS Statement are negative. Past Medical History Past Medical History: Asthma, Renal Disease Additional Past Medical History / Comment(s): Nephrolithiasis. wounds bilat LE pretibs from fall History of Any Multi-Drug Resistant Organisms: MRSA Date of last positivie culture/infection: 07/31/16 MDRO Source:: RIGHT LEG Past Surgical History: Hernia Repair, Tonsillectomy Additional Past Surgical History / Comment(s): Lithotripsy, bilateral inguinal hernia repain (one side done twice). Past Psychological History: Anxiety, Panic Disorder Smoking Status: Never smoker Past Alcohol Use History: None Reported Past Drug Use History: None Reported - Past Family History Mother Family Medical History: CVA/TIA Father Additional Family Medical History / Comment(s): Father in a snowmobile accident. General Exam - General Exam Comments Initial Comments: General: Awake and alert, well-developed; in no apparent distress. HEENT: Head atraumatic, normocephalic. Pupils are equal, round and reactive to light. Extraocular movements intact. Oropharynx moist without erythema or exudate. Neck: Supple. Normal ROM. Cardiovascular: Regular rate and rhythm. No murmurs, rubs or gallops. Chest symmetrical. Respiratory: Lungs clear to auscultation bilaterally. No wheezes, rales or rhonchi. Normal respiratory effort with no use of accessory muscles. Musculoskeletal: Normal range of motion of bilateral upper and lower extremities. Skin: Diffuse erythema, tenderness, swelling and warmth of the left lower extremity below the knee. Old healed transverse scar across the left schwab is noted. Sensation is intact. Pedal pulses are 2+ equal and palpable bilaterally. Neurological: Alert and oriented x3. CN II-XII grossly intact. Speech is fluent and answers are appropriate. No focal neuro deficits. Psychiatric: Normal mood and affect. No overt signs of depression or anxiety noted. Limitations: no limitations Course Vital Signs 10/15/17 19:06 Temperature 101.2 F H Pulse Rate 110 H Respiratory 20 Rate Blood Pressure 110/71 O2 Sat by Pulse 96 Oximetry Medical Decision Making - Medical Decision Making This is a 46-year-old male who presents to the emergency department with chief complaint of worsening cellulitis. Patient was diagnosed with left lower chimneys cellulitis yesterday. He was started on Augmentin. Patient presents to the emergency department complaining of spreading redness and pain. Complains of fevers, chills and body aches. On physical examination, there is diffuse erythema, swelling, tenderness and warmth of the left lower extremity. I did review of a picture that his had taken from yesterday. There is definite spreading of the cellulitis. Patient is neurovascularly intact. Patient started on vancomycin and Zosyn. On review of patient's previous visit , ultrasound venous Doppler of the extremity was obtained which revealed no evidence for an acute DVT. Patient will be admitted to Dr. Malin's group for left lower extremity cellulitis. Dr. Lacy's is consulted. Patient is in agreement for admission. He is in no acute distress. - Lab Data Result diagrams: 10/15/17 20:00 10/15/17 20:00 Lab Results 10/15/17 10/15/17 10/15/17 Range/Units 20:00 20:00 20:00 WBC 14.4 H (3.8-10.6) k/uL RBC 4.51 (4.30-5.90) m/uL Hgb 13.0 (13.0-17.5) gm/dL Hct 40.5 (39.0-53.0) % MCV 89.8 (80.0-100.0) fL MCH 28.9 (25.0-35.0) pg MCHC 32.2 (31.0-37.0) g/dL RDW 13.1 (11.5-15.5) % Plt Count 207 (150-450) k/uL Neutrophils % 88 % Lymphocytes % 4 % Monocytes % 6 % Eosinophils % 1 % Basophils % 0 % Neutrophils # 12.7 H (1.3-7.7) k/uL Lymphocytes # 0.6 L (1.0-4.8) k/uL Monocytes # 0.8 (0-1.0) k/uL Eosinophils # 0.1 (0-0.7) k/uL Basophils # 0.0 (0-0.2) k/uL Sodium 136 L (137-145) mmol/L Potassium 4.1 (3.5-5.1) mmol/L Chloride 104 (98-107) mmol/L Carbon Dioxide 27 (22-30) mmol/L Anion Gap 5 mmol/L BUN 14 (9-20) mg/dL Creatinine 0.70 (0.66-1.25) mg/dL Est GFR (CKD-EPI)AfAm >90 (>60 ml/min/1.73 sqM) Est GFR (CKD-EPI)NonAf >90 (>60 ml/min/1.73 sqM) Glucose 111 H (74-99) mg/dL Plasma Lactic Acid Tonny 1.7 (0.7-2.0) mmol/L Calcium 8.6 (8.4-10.2) mg/dL Total Bilirubin 0.5 (0.2-1.3) mg/dL AST 17 (17-59) U/L ALT 34 (21-72) U/L Alkaline Phosphatase 75 (38-126) U/L Total Protein 5.7 L (6.3-8.2) g/dL Albumin 3.2 L (3.5-5.0) g/dL Disposition Clinical Impression: Left leg cellulitis Disposition: ADMITTED IP TO THIS HOSP Condition: Fair Is patient prescribed a controlled substance at d/c from ED?: No Referrals: Martina De La Fuente DO [Primary Care Provider] - 1-2 days Time of Disposition: 20:46
[2017-10-15] MEDS ORDERED: VANCOMYCIN 2,250 MG in SODIUM CHLORIDE 0.9% 500 ML IVPB STA (20:03)
[2017-10-15 20:17] LABS: Basophils % (A) 0 %; Eosinophils # (A) 0.1 k/uL (0-0.7); Eosinophils % (A) 1 %; HCT 40.5 % (39.0-53.0); Lymphocytes # (A) 0.6 k/uL (1.0-4.8); Lymphocytes % (A) 4 %; MCH 28.9 pg (25.0-35.0); MCHC 32.2 g/dL (31.0-37.0); MCV 89.8 fL (80.0-100.0); Mean Platelet Volume 6.7; Monocytes # (A) 0.8 k/uL (0-1.0); Monocytes % (A) 6 %; Neutrophils # (A) 12.7 k/uL (1.3-7.7); Neutrophils % (A) 88 %; Platelet Count 207 k/uL (150-450); RBC 4.51 m/uL (4.30-5.90); RDW 13.1 % (11.5-15.5); WBC 14.4 k/uL (3.8-10.6)
[2017-10-15 20:31] LABS: ALT 34 U/L (21-72); AST 17 U/L (17-59); Albumin 3.2 g/dL (3.5-5.0); Alkaline Phosphatase 75 U/L (38-126); Anion Gap 5 mmol/L; Blood Urea Nitrogen 14 mg/dL (9-20); Calcium 8.6 mg/dL (8.4-10.2); Carbon Dioxide 27 mmol/L (22-30); Chloride 104 mmol/L (98-107); Glucose 111 mg/dL (74-99); Potassium 4.1 mmol/L (3.5-5.1); Sodium 136 mmol/L (137-145); Total Bilirubin 0.5 mg/dL (0.2-1.3); Total Protein 5.7 g/dL (6.3-8.2)
[2017-10-15] MEDS ORDERED: IBUPROFEN 400 MG TAB PO PRN (20:43)
[2017-10-16] MEDS: PIPERACILLIN-TAZOBACTAM 3.375 GM in DEXTROSE/WATER 1 50ML.BAG IVPB SCH ×3 (00:37→15:16)
[2017-10-16] MEDS: KETOROLAC 30 MG/ML 1 ML VIAL IVP PRN ×4 (01:46→22:36)
[2017-10-16 02:59] VITALS: BMI 48.8
[2017-10-16] MEDS: VANCOMYCIN 2,250 MG in SODIUM CHLORIDE 0.9% 500 ML IVPB SCH ×3 (05:33→22:36)
[2017-10-16 07:58] LABS: Basophils % (A) 0 %; Eosinophils # (A) 0.1 k/uL (0-0.7); Eosinophils % (A) 1 %; HCT 37.3 % (39.0-53.0); HGB 12.3 gm/dL (13.0-17.5); Lymphocytes # (A) 0.6 k/uL (1.0-4.8); Lymphocytes % (A) 5 %; MCH 29.6 pg (25.0-35.0); MCHC 32.9 g/dL (31.0-37.0); Monocytes # (A) 0.7 k/uL (0-1.0); Monocytes % (A) 5 %; Neutrophils # (A) 11.3 k/uL (1.3-7.7); Neutrophils % (A) 87 %; Platelet Count 172 k/uL (150-450); RBC 4.15 m/uL (4.30-5.90); WBC 12.9 k/uL (3.8-10.6)
[2017-10-16 08:09] LABS: ALT 33 U/L (21-72); AST 16 U/L (17-59); Albumin 2.9 g/dL (3.5-5.0); Alkaline Phosphatase 71 U/L (38-126); Anion Gap 7 mmol/L; Blood Urea Nitrogen 14 mg/dL (9-20); Calcium 8.1 mg/dL (8.4-10.2); Carbon Dioxide 25 mmol/L (22-30); Chloride 104 mmol/L (98-107); Glucose 118 mg/dL (74-99); Potassium 4.5 mmol/L (3.5-5.1); Sodium 136 mmol/L (137-145); Total Bilirubin 0.5 mg/dL (0.2-1.3); Total Protein 5.3 g/dL (6.3-8.2)
[2017-10-16] MEDS: ACETAMINOPHEN TAB 325 MG TAB PO PRN ×2 (09:25→19:33)
[2017-10-16] MEDS: ONDANSETRON 4 MG/2 ML VIAL IVP PRN ×2 (09:26→15:19)
[2017-10-16] MEDS ORDERED: LISINOPRIL 10 MG TAB PO SCH (09:30)
--- NOTE | 2017-10-16 10:44 | P.CONS ---
History of Present Illness - Reason for Consult Consult date: 10/16/17 Cellulitis left leg - History of Present Illness This is a 46-year-old male patient who has had problems in the past with lower extremity cellulitis and nonhealing wounds. He was patient in the wound Center under the care of Dr. Trimble and discharge September 2016. He states he has had no problems with wound since that time until last week he bumped his schwab on the [employer] truck. He states it bled at the time we have added on he was feeling fever and chills and sweats and then became a low but better for a couple of days but on Saturday fever chills and sweats returned and he also vomited a couple times. He came into [facility] emergency center on Saturday. Chest x-ray showed no acute finding. Ultrasound of the lower extremity was negative for DVT. Patient was placed on Augmentin and discharged home. Patient has had worsening of redness and swelling to the left lower extremity and has continued to run fevers. He also has some nausea vomiting and he started having diarrhea after starting Augmentin. The diarrhea is a couple times a day only. Patient was started on Zosyn and vancomycin and admitted to the [facility] floor. On presentation, temperature was 101.3, leukocytosis of 12.9. Lactic acid 1.7, albumin 2.9. Urinalysis did show blood. Blood culture is showing no growth at 24 hours and urine cultures finalize with no growth. Review of Systems All systems: negative Constitutional: Reports anorexia, Reports chills, Reports fatigue, Reports fever , Reports poor appetite, Reports sweats Eyes: denies blurred vision, denies pain Ears, nose, mouth and throat: Denies dental pain, Denies headache, Denies mouth pain, Denies sore throat, Denies vertigo Cardiovascular: Denies chest pain, Denies lightheadedness, Denies shortness of breath, Denies syncope Respiratory: Denies cough, Denies cough with sputum, Denies dyspnea, Denies excessive sputum, Denies hemoptysis, Denies home oxygen, Denies wheezing Gastrointestinal: Reports diarrhea, Reports loss of appetite, Reports nausea, Reports vomiting, Denies abdominal pain Genitourinary: Denies dysuria Musculoskeletal: Denies frequent falls, Denies myalgias Integumentary: Reports wounds, Denies pruritus, Denies rash Neurological: Denies numbness, Denies weakness Psychiatric: Denies anxiety, Denies depression Endocrine: Denies fatigue, Denies weight change Past Medical History Past Medical History: Asthma Additional Past Medical History / Comment(s): Nephrolithiasis. wounds bilat LE pretibs from fall History of Any Multi-Drug Resistant Organisms: MRSA Year Discovered:: 07/31/16 MDRO Source:: RIGHT LEG Past Surgical History: Hernia Repair, Tonsillectomy Additional Past Surgical History / Comment(s): Lithotripsy, bilateral inguinal hernia repair (one side done twice). Multiple debridements of lower extremity wounds. Past Psychological History: Anxiety, Panic Disorder Additional Psychological History / Comment(s): Pt resides with his spouse and son. He is independent. He works for [employer]. Smoking Status: Never smoker Past Alcohol Use History: None Reported Additional Past Alcohol Use History / Comment(s): She is a lifelong nonsmoker. He denies any marijuana or street drug use. He works for [employer]. He lives at home with his and son. He does have outside cats but no other animal exposures. No recent travel. Past Drug Use History: None Reported - Past Family History Mother Family Medical History: CVA/TIA Father Additional Family Medical History / Comment(s): Father in a snowmobile accident. Medications and Allergies Home Medications Medication Instructions Recorded Confirmed Type Escitalopram Oxalate [Lexapro] 20 mg PO DAILY 04/10/16 10/15/17 History buPROPion HCL [Wellbutrin XL] 300 mg PO DAILY 04/10/16 10/15/17 History clonazePAM [KlonoPIN] 0.5 mg PO QAM 04/10/16 10/15/17 History Lisinopril [Zestril] 10 mg PO DAILY 10/14/17 10/15/17 History Amoxicillin/Potassium Clav 1 tab PO Q12HR #28 tab 10/15/17 10/15/17 Rx [Augmentin 875-125 Tablet] Allergies Allergy/AdvReac Type Severity Reaction Status Date / Time Sulfa (Sulfonamide Allergy Unknown Verified 10/15/17 21:11 Antibiotics) Physical Exam Vitals: Vital Signs Temp Pulse Pulse Resp BP BP Pulse Ox 10/16/17 07:52 96 18 10/16/17 05:55 99.8 F H 96 18 119/72 97 10/15/17 23:00 98.6 F 54 L 18 93/50 100 10/15/17 21:49 99.8 F H 100 16 154/74 97 10/15/17 19:06 101.2 F H 110 H 20 110/71 96 Intake and Output 10/15/17 10/16/17 10/16/17 22:59 06:59 14:59 Other: Voiding Method Toilet # Voids 1 Weight 163.293 kg Gen: This is a morbidly obese 46-year-old male. He is sitting up in bed and appears to be comfortable and in no acute distress. Noted that left lower leg is in a dependent position. HEENT: Head is atraumatic, normocephalic. Pupils equal, round. Sclerae is anicteric. Junk eloping. Mucous members of the mouth are moist. NECK: Supple. No JVD. No lymphadenopathy. No thyromegaly. LUNGS: Clear to auscultation. No wheezes or rhonchi. No intercostal retractions. HEART: Regular rate and rhythm. No murmur. ABDOMEN: Soft. Bowel sounds are present. No masses. No tenderness. EXTREMITIES: Dorsalis pedis is +2 bilaterally. Patient has erythema and edema to the pretibial and posterior calf area. There is a small scab on the pretibial area. No active drainage. Area is warm to the touch and tender. NEUROLOGICAL: Patient is awake, alert and oriented x3. Cranial nerves 2 through 12 are grossly intact. Results Results: Laboratory Results WBC 12.9 k/uL (3.8-10.6) H 10/16/17 07:10 RBC 4.15 m/uL (4.30-5.90) L 10/16/17 07:10 Hgb 12.3 gm/dL (13.0-17.5) L 10/16/17 07:10 Hct 37.3 % (39.0-53.0) L 10/16/17 07:10 MCV 90.0 fL (80.0-100.0) 10/16/17 07:10 MCH 29.6 pg (25.0-35.0) 10/16/17 07:10 MCHC 32.9 g/dL (31.0-37.0) 10/16/17 07:10 RDW 13.0 % (11.5-15.5) 10/16/17 07:10 Plt Count 172 k/uL (150-450) 10/16/17 07:10 Neutrophils % 87 % 10/16/17 07:10 Lymphocytes % 5 % 10/16/17 07:10 Monocytes % 5 % 10/16/17 07:10 Eosinophils % 1 % 10/16/17 07:10 Basophils % 0 % 10/16/17 07:10 Neutrophils # 11.3 k/uL (1.3-7.7) H 10/16/17 07:10 Lymphocytes # 0.6 k/uL (1.0-4.8) L 10/16/17 07:10 Monocytes # 0.7 k/uL (0-1.0) 10/16/17 07:10 Eosinophils # 0.1 k/uL (0-0.7) 10/16/17 07:10 Basophils # 0.0 k/uL (0-0.2) 10/16/17 07:10 Sodium 136 mmol/L (137-145) L 10/16/17 07:10 Potassium 4.5 mmol/L (3.5-5.1) 10/16/17 07:10 Chloride 104 mmol/L (98-107) 10/16/17 07:10 Carbon Dioxide 25 mmol/L (22-30) 10/16/17 07:10 Anion Gap 7 mmol/L 10/16/17 07:10 BUN 14 mg/dL (9-20) 10/16/17 07:10 Creatinine 0.75 mg/dL (0.66-1.25) 10/16/17 07:10 Est GFR (CKD-EPI)AfAm >90 (>60 ml/min/1.73 sqM) 10/16/17 07:10 Est GFR (CKD-EPI)NonAf >90 (>60 ml/min/1.73 sqM) 10/16/17 07:10 Glucose 118 mg/dL (74-99) H 10/16/17 07:10 Plasma Lactic Acid Tonny 1.7 mmol/L (0.7-2.0) 10/15/17 20:00 Calcium 8.1 mg/dL (8.4-10.2) L 10/16/17 07:10 Total Bilirubin 0.5 mg/dL (0.2-1.3) 10/16/17 07:10 AST 16 U/L (17-59) L 10/16/17 07:10 ALT 33 U/L (21-72) 10/16/17 07:10 Alkaline Phosphatase 71 U/L (38-126) 10/16/17 07:10 Total Protein 5.3 g/dL (6.3-8.2) L 10/16/17 07:10 Albumin 2.9 g/dL (3.5-5.0) L 10/16/17 07:10 CBC & Chem 7: 10/16/17 07:10 10/16/17 07:10 Labs: Abnormal Lab Results - Last 24 Hours (Table) 10/15/17 10/15/17 10/16/17 Range/Units 20:00 20:00 07:10 WBC 14.4 H 12.9 H (3.8-10.6) k/uL RBC 4.15 L (4.30-5.90) m/uL Hgb 12.3 L (13.0-17.5) gm/dL Hct 37.3 L (39.0-53.0) % Neutrophils # 12.7 H 11.3 H (1.3-7.7) k/uL Lymphocytes # 0.6 L 0.6 L (1.0-4.8) k/uL Sodium 136 L (137-145) mmol/L Glucose 111 H (74-99) mg/dL Calcium (8.4-10.2) mg/dL AST (17-59) U/L Total Protein 5.7 L (6.3-8.2) g/dL Albumin 3.2 L (3.5-5.0) g/dL 10/16/17 Range/Units 07:10 WBC (3.8-10.6) k/uL RBC (4.30-5.90) m/uL Hgb (13.0-17.5) gm/dL Hct (39.0-53.0) % Neutrophils # (1.3-7.7) k/uL Lymphocytes # (1.0-4.8) k/uL Sodium 136 L (137-145) mmol/L Glucose 118 H (74-99) mg/dL Calcium 8.1 L (8.4-10.2) mg/dL AST 16 L (17-59) U/L Total Protein 5.3 L (6.3-8.2) g/dL Albumin 2.9 L (3.5-5.0) g/dL Assessment and Plan Plan: This is a 46-year-old male patient who presented to the hospital with sepsis secondary to cellulitis of the left lower extremity. Patient is currently on Zosyn and vancomycin which will be continued. Local wound care with Silvadene wrap and elevation on 2 pillows. Blood cultures currently showing no growth. Wound cultures not obtainable at this point. Continue supportive care. Further recommendations as patient progresses. The above dictated assessment and findings were discussed with Dr. Lacy. The impression and plan of care have been directed as dictated. Morenita Santana nurse practitioner acting as scribe for Dr. Lacy.
[2017-10-16] MEDS: buPROPion XL 300 MG TAB.ER.24H PO SCH (10:51)
[2017-10-16] MEDS: clonazePAM 0.5 MG TAB PO SCH (10:51)
[2017-10-16] MEDS: ESCITALOPRAM 20 MG TAB PO SCH (10:52)
[2017-10-16] MEDS: FAMOTIDINE 20 MG TAB PO SCH ×2 (10:52→20:48)
[2017-10-16] MEDS ORDERED: ALPRAZolam 0.25 MG TAB PO PRN (11:31)
--- NOTE | 2017-10-16 12:40 | HP ---
HISTORY AND PHYSICAL CHIEF COMPLAINT: Pain, swelling and erythema of the left leg. HISTORY OF PRESENT ILLNESS: This is a 46-year-old gentleman with a past medical history of asthma, nephrolithiasis, history of bilateral lower extremity wounds from a fall, MRSA, hernia repair, anxiety, panic disorder, being followed by Dr. De La Fuente in the outpatient setting, not feeling well since last week. The patient had erythema which is progressing on the left leg and patient came to the ER and was diagnosed with cellulitis and started on Augmentin. The patient went home and the erythema was spreading and patient also had body aches, chills, headache, fever and abdominal symptoms and patient came to [facility], admitted for further evaluation and treatment. White count is elevated to 14.9 and lactic acid is 1.7. Sodium is 136. There is no history of any chest pain, hematochezia, melena, shortness of breath at this time. PAST MEDICAL HISTORY: History of asthma, nephrolithiasis, MRSA, hernia repair, anxiety, panic disorder. MEDICATIONS PRIOR TO ADMISSION: 1. Klonopin 0.5 mg q.a.m. 2. Wellbutrin XL 300 mg p.o. daily. 3. Zestril 10 mg p.o. daily. 4. Lexapro 20 mg p.o. daily. 5. Augmentin 1 p.o. b.i.d. ALLERGIES: SULFA. FAMILY HISTORY: History of CVA, TIA. SOCIAL HISTORY: Previous history of smoking. No history of alcohol intake. REVIEW OF SYSTEMS: ENT: No diminished vision or hearing. CARDIOVASCULAR: No angina. RESPIRATORY: As mentioned earlier. GI: Nausea and diarrhea as mentioned earlier. : No dysuria. NERVOUS SYSTEM: No numbness or weakness. ALLERGY/IMMUNOLOGY: As mentioned earlier. HEMATOLOGY: No history of anemia. ENDOCRINE: No history of diabetes or hypothyroidism. CONSTITUTIONAL: As mentioned earlier. DERMATOLOGY: As mentioned earlier. RHEUMATOLOGY: Negative. PSYCHIATRY: As mentioned earlier. PHYSICAL EXAMINATION: Patient is alert and oriented x3. Pulse is 93, blood pressure 119/70, respiration 18, temperature 99.8, pulse ox 97% on room air. HEENT: Conjunctivae normal, oral mucosa moist. Neck is no jugular venous distention. No thyroid enlargement. No carotid bruit. No lymph node enlargement. CARDIOVASCULAR SYSTEM: S1, S2, muffled, no S3, no S4. RESPIRATORY: Breath sounds diminished at the bases, a few scattered rhonchi. No crackles. ABDOMEN: Soft, obese, nontender. No mass palpable. LEGS: Left leg significant cellulitis and pain and tenderness, edema present. Healed scars also present. LYMPHATICS: No lymph node enlargement in the neck or axillae. MUSCULOSKELETAL: No joints, no active deforming arthropathy. NERVOUS SYSTEM: Higher functions as mentioned, moves all 4 limbs. No focal motor or sensory deficits. LABS: WBC 12.2, hemoglobin is 12.6, sodium is 136, albumin is 2.9. ASSESSMENT: 1. Acute left leg cellulitis with sepsis, present on admission with failure of outpatient treatment. 2. Hyponatremia. 3. Increased WBC. 4. Asthma. 5. Nephrolithiasis. 6. History of previous wounds on the both legs. 7. History of Methicillin-resistant Staphylococcus aureus. 8. History of lithotripsy. 9. Obesity with body mass index of 48.8. 10.History anxiety, panic disorder. RECOMMENDATION: In this 46-year-old gentleman who presented with multiple medical issues, will monitor the patient closely. Continue the current management and symptomatic treatment. Otherwise, at this time I would recommend broad-spectrum IV antibiotics, cultures, DVT prophylaxis, symptomatic treatment. Infectious Disease consultation with Dr. Lacy. Guarded prognosis. Further recommendations to follow. A copy of this will be forwarded to Dr. De La Fuente who is the primary physician. MMODL / IJN: [id number] /
[2017-10-16 13:09] LABS: Amorphous Sediment,Urine Rare /hpf; Appearance,Urine Turbid (Clear); Bacteria,Urine Rare /hpf; Bilirubin,Urine Negative (Negative); Blood,Urine Moderate (Negative); Color,Urine Yellow; Glucose,Urine (UA) Negative (Negative); Ketones,Urine Negative (Negative); Leukocyte Esterase,Urine Negative (Negative); Mucus,Urine Occasional /hpf; Nitrite,Urine Negative (Negative); Protein,Urine 1+ (Negative); RBC,Urine 30 /hpf (0-5); Specific Gravity,Urine 1.026 (1.001-1.035); Urobilinogen,Urine <2.0 mg/dL (<2.0); WBC,Urine 8 /hpf (0-5)
[2017-10-16] MEDS: HEPARIN SODIUM,PORCINE 5,000 UNIT/ML 1 ML VIAL SQ SCH (20:48)
[2017-10-16] MEDS ORDERED: TEMAZEPAM 15 MG CAP PO PRN (21:00)
--- NOTE | 2017-10-16 23:20 | P.CON ---
Consult Note - . Consult date: 10/16/17 Assessment/Plan:: This is a 46-year-old male patient who has had problems in the past with lower extremity cellulitis and nonhealing wounds. He was patient in the wound Center under the care of Dr. Trimble and discharge September 2016. He states he has had no problems with wound since that time until last week he bumped his schwab on the [employer] truck. He states it bled at the time we have added on he was feeling fever and chills and sweats and then became a low but better for a couple of days but on Saturday fever chills and sweats returned and he also vomited a couple times. He came into [facility] emergency center on Saturday. Chest x-ray showed no acute finding. Ultrasound of the lower extremity was negative for DVT. Patient was placed on Augmentin and discharged home. Patient has had worsening of redness and swelling to the left lower extremity and has continued to run fevers. He also has some nausea vomiting and he started having diarrhea after starting Augmentin. The diarrhea is a couple times a day only. Patient was started on Zosyn and vancomycin and admitted to the [facility] floor. On presentation, temperature was 101.3, leukocytosis of 12.9. Lactic acid 1.7, albumin 2.9. Urinalysis did show blood. Blood culture is showing no growth at 24 hours and urine cultures finalize with no growth. Please see the consult note as dictated by PAGE TECHNICIAN Gideon Morenita Santana . This pleasant 46-year-old gentleman does have difficulties with obesity and a prior history of significant injury and cellulitis of the left lower extremity. He was treated to the wound center and did have negative pressure therapy treatment because of the extensive ulceration. He is a relatively well but does relate that he did have a small puncture-like injury to the left pretibial area. Within 48 hours of the injury he developed increasing amounts of swelling erythema and tenderness. He then developed high-grade fever chills and presented to Hospital of evidence of underlying sepsis and leukocytosis. The patient is evidence of the extensive cellulitis of left lower extremity which we treated with antibiotic therapy currently with piperacillin tazobactam and vancomycin pending culture results. Local wound care with the Silvadene therapy rolled gauze and wrap will be utilized and the patient is aware of the significant importance of elevation to help allow improvement of this cellulitis. The patient does have an ascending lymphangitis component and did have significant tenderness to the left inguinal lymph node which is now improved at this time. There are no other significant symptoms at this time. The patient will be treated with intravenous antibiotic therapy as well as local wound care and elevation expect rapid resolution. I agree with evaluation , assessment and plan is dictated by nurse practitioner Mrs. Morenita Santana.
[2017-10-17] MEDS: PIPERACILLIN-TAZOBACTAM 3.375 GM in DEXTROSE/WATER 1 50ML.BAG IVPB SCH ×3 (01:40→15:01)
[2017-10-17] MEDS: ACETAMINOPHEN TAB 325 MG TAB PO PRN ×3 (02:01→20:56)
[2017-10-17] MEDS: KETOROLAC 30 MG/ML 1 ML VIAL IVP PRN ×2 (05:13→15:12)
[2017-10-17] MEDS: VANCOMYCIN 2,250 MG in SODIUM CHLORIDE 0.9% 500 ML IVPB SCH ×3 (05:13→22:25)
[2017-10-17] MEDS: ESCITALOPRAM 20 MG TAB PO SCH (08:22)
[2017-10-17] MEDS: clonazePAM 0.5 MG TAB PO SCH (08:22)
[2017-10-17] MEDS: HEPARIN SODIUM,PORCINE 5,000 UNIT/ML 1 ML VIAL SQ SCH ×2 (08:22→20:56)
[2017-10-17] MEDS: buPROPion XL 300 MG TAB.ER.24H PO SCH (08:22)
[2017-10-17] MEDS: FAMOTIDINE 20 MG TAB PO SCH ×2 (08:22→20:56)
[2017-10-17] MEDS: PANTOPRAZOLE 40 MG TABLET PO SCH (08:22)
[2017-10-17 08:26] LABS: Basophils % (A) 0 %; Eosinophils # (A) 0.2 k/uL (0-0.7); Eosinophils % (A) 2 %; HCT 37.1 % (39.0-53.0); HGB 11.6 gm/dL (13.0-17.5); Hypochromasia Slight; Lymphocytes # (A) 0.9 k/uL (1.0-4.8); Lymphocytes % (A) 10 %; MCH 28.4 pg (25.0-35.0); MCHC 31.2 g/dL (31.0-37.0); MCV 90.9 fL (80.0-100.0); Mean Platelet Volume 6.9; Monocytes # (A) 0.6 k/uL (0-1.0); Monocytes % (A) 7 %; Neutrophils # (A) 6.4 k/uL (1.3-7.7); Neutrophils % (A) 77 %; Platelet Count 207 k/uL (150-450); RBC 4.08 m/uL (4.30-5.90); RDW 13.2 % (11.5-15.5); WBC 8.2 k/uL (3.8-10.6)
[2017-10-17 08:48] LABS: Anion Gap 5 mmol/L; Blood Urea Nitrogen 14 mg/dL (9-20); Calcium 8.2 mg/dL (8.4-10.2); Carbon Dioxide 25 mmol/L (22-30); Chloride 109 mmol/L (98-107); Glucose 112 mg/dL (74-99); Potassium 4.3 mmol/L (3.5-5.1); Sodium 139 mmol/L (137-145)
--- NOTE | 2017-10-17 12:41 | PN ---
PROGRESS NOTE DATE OF SERVICE: 10/17/2017 This 46-year-old gentleman admitted with acute left leg cellulitis and possibly early sepsis is being closely monitored. The patient is on IV antibiotics. Infectious disease is following the patient. No chest pain or palpitation. No fever. PHYSICAL EXAMINATION: On exam, alert and oriented x3. Pulse 79, blood pressure 159/72, respiration 16, temperature 97.7, pulse ox 97% on room air. HEENT: Conjunctivae normal. Oral mucosa moist. NECK: No jugular venous distention. No carotid bruit. No lymph node enlargement. CARDIOVASCULAR: S1 and S2 muffled. RESPIRATORY: Breath sounds diminished at the bases. No rhonchi, no crackles. ABDOMEN: Soft, nontender. No mass palpable. Obese. LEGS: Significant left leg. The patient is not complaining of any burning pain or warmth at this time. NERVOUS SYSTEM: Higher functions as mentioned. Moves all 4 limbs. No focal motor or sensory deficits. LYMPHATICS: No lymphadenopathy of the neck, axillae or groin. SKIN: As mentioned earlier. LABS: WBC 8.2, hemoglobin 11.6. ASSESSMENT: 1. Acute left leg cellulitis with sepsis present on admission with failure of outpatient treatment. 2. Hyponatremia. 3. Increased WBC. 4. History of asthma. 5. History of nephrolithiasis. 6. History of previous wound on both legs. 7. History of methicillin-resistant Staphylococcus aureus. 8. History of lithotripsy. 9. Obesity with body mass index of 48.8. 10.History of anxiety, panic disorder. RECOMMENDATIONS AND DISCUSSION: Recommend to continue current medications. Continue with monitoring and symptomatic treatment. Otherwise at this time continue with the broad-spectrum IV antibiotics. Guarded prognosis because of multiple complex medical issues. Further recommendations to follow. MMODL / IJN: [id number] / ANNE
[2017-10-17] MEDS ORDERED: VANCOMYCIN TROUGH DUE 1 EACH MISC MISCELLANE ONE (13:00)
[2017-10-17] MEDS: SILVER sulfADIAZINE Cream 400 GM 1 APPLIC APPLIC TOPICAL SCH (14:42)
--- NOTE | 2017-10-17 23:06 | P.PN ---
Subjective Progress Note Date: 10/17/17 This is a 46-year-old male patient who has had problems in the past with lower extremity cellulitis and nonhealing wounds. He was patient in the wound Center under the care of Dr. Trimble and discharge September 2016. He states he has had no problems with wound since that time until last week he bumped his schwab on the [employer] truck. He states it bled at the time we have added on he was feeling fever and chills and sweats and then became a low but better for a couple of days but on Saturday fever chills and sweats returned and he also vomited a couple times. He came into [facility] emergency center on Saturday. Chest x-ray showed no acute finding. Ultrasound of the lower extremity was negative for DVT. Patient was placed on Augmentin and discharged home. Patient has had worsening of redness and swelling to the left lower extremity and has continued to run fevers. He also has some nausea vomiting and he started having diarrhea after starting Augmentin. The diarrhea is a couple times a day only. Patient was started on Zosyn and vancomycin and admitted to the [facility] floor. On presentation, temperature was 101.3, leukocytosis of 12.9. Lactic acid 1.7, albumin 2.9. Urinalysis did show blood. Blood culture is showing no growth at 24 hours and urine cultures finalize with no growth. 10/17/2017 patient is feeling considerably better. Swelling and erythema have improved as has discomfort. Objective - Vital Signs Vital signs: Vital Signs Temp 97.8 F 10/17/17 15:22 Pulse 89 10/17/17 16:00 Resp 16 10/17/17 16:00 BP 135/75 10/17/17 15:22 Pulse Ox 94 L 10/17/17 15:22 Intake & Output 10/17/17 10/17/17 10/18/17 06:59 18:59 06:59 Intake Total 1450 1170 Balance 1450 1170 Intake: Intake, IV Titration 1450 550 Amount Piperacillin-Tazobactam 3 100 50 .375 gm In Dextrose/Water 1 50ml.bag @ 12.5 mls/hr IVPB Q8HR [facility] Rx#: [id number] Sodium Chloride 0.9% 1, 850 000 ml @ 100 mls/hr IV . Q10H [facility] Rx#:[id number] Vancomycin 2,250 mg In 500 500 Sodium Chloride 0.9% 500 ml @ 167 mls/hr IVPB Q8H [facility] Rx#:[id number] Oral 620 Other: Voiding Method Toilet Toilet # Voids 4 - Exam Gen: This is a morbidly obese 46-year-old male. He is sitting up in bed and appears to be comfortable and in no acute distress. Noted that left lower leg is in a dependent position. HEENT: Head is atraumatic, normocephalic. Pupils equal, round. Sclerae is anicteric. Junk eloping. Mucous members of the mouth are moist. NECK: Supple. No JVD. No lymphadenopathy. No thyromegaly. LUNGS: Clear to auscultation. No wheezes or rhonchi. No intercostal retractions. HEART: Regular rate and rhythm. No murmur. ABDOMEN: Soft. Bowel sounds are present. No masses. No tenderness. EXTREMITIES: Dorsalis pedis is +2 bilaterally. Patient has erythema and edema to the pretibial and posterior calf area. There is a small scab on the pretibial area. No active drainage. The extensive warmth and erythema improved slightly today. Area of most intense tenderness is in the medial aspect of the calf no blistering or open ulcerations have occurred. The ascending erythema is starting to improve slightly and no significant inguinal lymphadenopathy or tenderness is noted. NEUROLOGICAL: Patient is awake, alert and oriented x3. Cranial nerves 2 through 12 are grossly intact. - Labs CBC & Chem 7: 10/17/17 07:58 10/17/17 06:57 Labs: Abnormal Lab Results - Last 24 Hours (Table) 10/17/17 10/17/17 Range/Units 06:57 07:58 RBC 4.08 L (4.30-5.90) m/uL Hgb 11.6 L (13.0-17.5) gm/dL Hct 37.1 L (39.0-53.0) % Lymphocytes # 0.9 L (1.0-4.8) k/uL Chloride 109 H (98-107) mmol/L Glucose 112 H (74-99) mg/dL Calcium 8.2 L (8.4-10.2) mg/dL Microbiology - Last 24 Hours (Table) 10/15/17 20:00 Blood Culture - Preliminary Blood No Growth after 48 hours Laboratory Results WBC 8.2 k/uL (3.8-10.6) 10/17/17 07:58 RBC 4.08 m/uL (4.30-5.90) L 10/17/17 07:58 Hgb 11.6 gm/dL (13.0-17.5) L 10/17/17 07:58 Hct 37.1 % (39.0-53.0) L 10/17/17 07:58 MCV 90.9 fL (80.0-100.0) 10/17/17 07:58 MCH 28.4 pg (25.0-35.0) 10/17/17 07:58 MCHC 31.2 g/dL (31.0-37.0) 10/17/17 07:58 RDW 13.2 % (11.5-15.5) 10/17/17 07:58 Plt Count 207 k/uL (150-450) 10/17/17 07:58 Neutrophils % 77 % 10/17/17 07:58 Lymphocytes % 10 % 10/17/17 07:58 Monocytes % 7 % 10/17/17 07:58 Eosinophils % 2 % 10/17/17 07:58 Basophils % 0 % 10/17/17 07:58 Neutrophils # 6.4 k/uL (1.3-7.7) 10/17/17 07:58 Lymphocytes # 0.9 k/uL (1.0-4.8) L 10/17/17 07:58 Monocytes # 0.6 k/uL (0-1.0) 10/17/17 07:58 Eosinophils # 0.2 k/uL (0-0.7) 10/17/17 07:58 Basophils # 0.0 k/uL (0-0.2) 10/17/17 07:58 Hypochromasia Slight 10/17/17 07:58 Sodium 139 mmol/L (137-145) 10/17/17 06:57 Potassium 4.3 mmol/L (3.5-5.1) 10/17/17 06:57 Chloride 109 mmol/L (98-107) H 10/17/17 06:57 Carbon Dioxide 25 mmol/L (22-30) 10/17/17 06:57 Anion Gap 5 mmol/L 10/17/17 06:57 BUN 14 mg/dL (9-20) 10/17/17 06:57 Creatinine 0.72 mg/dL (0.66-1.25) 10/17/17 06:57 Est GFR (CKD-EPI)AfAm >90 (>60 ml/min/1.73 sqM) 10/17/17 06:57 Est GFR (CKD-EPI)NonAf >90 (>60 ml/min/1.73 sqM) 10/17/17 06:57 Glucose 112 mg/dL (74-99) H 10/17/17 06:57 Plasma Lactic Acid Tonny 1.7 mmol/L (0.7-2.0) 10/15/17 20:00 Calcium 8.2 mg/dL (8.4-10.2) L 10/17/17 06:57 Total Bilirubin 0.5 mg/dL (0.2-1.3) 10/16/17 07:10 AST 16 U/L (17-59) L 10/16/17 07:10 ALT 33 U/L (21-72) 10/16/17 07:10 Alkaline Phosphatase 71 U/L (38-126) 10/16/17 07:10 Total Protein 5.3 g/dL (6.3-8.2) L 10/16/17 07:10 Albumin 2.9 g/dL (3.5-5.0) L 10/16/17 07:10 Urine Color Yellow 10/16/17 12:44 Urine Appearance Turbid (Clear) 10/16/17 12:44 Urine pH 6.0 (5.0-8.0) 10/16/17 12:44 Ur Specific [place] 1.026 (1.001-1.035) 10/16/17 12:44 Urine Protein 1+ (Negative) H 10/16/17 12:44 Urine Glucose (UA) Negative (Negative) 10/16/17 12:44 Urine Ketones Negative (Negative) 10/16/17 12:44 Urine Blood Moderate (Negative) H 10/16/17 12:44 Urine Nitrite Negative (Negative) 10/16/17 12:44 Urine Bilirubin Negative (Negative) 10/16/17 12:44 Urine Urobilinogen <2.0 mg/dL (<2.0) 10/16/17 12:44 Ur Leukocyte Esterase Negative (Negative) 10/16/17 12:44 Urine RBC 30 /hpf (0-5) H 10/16/17 12:44 Urine WBC 8 /hpf (0-5) H 10/16/17 12:44 Amorphous Sediment Rare /hpf (None) H 10/16/17 12:44 Urine Bacteria Rare /hpf (None) H 10/16/17 12:44 Urine Mucus Occasional /hpf (None) H 10/16/17 12:44 Vancomycin Trough 16.0 ug/mL 10/17/17 13:13 Microbiology 10/15/17 20:00 Blood Blood Culture - Preliminary No Growth after 48 hours Assessment and Plan (1) Left leg cellulitis Narrative/Plan: This pleasant 46-year-old gentleman does have difficulties with obesity and a prior history of significant injury and cellulitis of the left lower extremity. He was treated to the wound center and did have negative pressure therapy treatment because of the extensive ulceration. He is a relatively well but does relate that he did have a small puncture-like injury to the left pretibial area. Within 48 hours of the injury he developed increasing amounts of swelling erythema and tenderness. He then developed high-grade fever chills and presented to Hospital of evidence of underlying sepsis and leukocytosis. The patient is evidence of the extensive cellulitis of left lower extremity which we treated with antibiotic therapy currently with piperacillin tazobactam and vancomycin pending culture results. Local wound care with the Silvadene therapy rolled gauze and wrap will be utilized and the patient is aware of the significant importance of elevation to help allow improvement of this cellulitis. The patient does have an ascending lymphangitis component and did have significant tenderness to the left inguinal lymph node which is now improved at this time. There are no other significant symptoms at this time. The patient will be treated with intravenous antibiotic therapy as well as local wound care and elevation expect rapid resolution. 10/17/2017 reveals the patient to have some improvement already today. Legs still very swollen but the intensity of the erythema in the extensive the tenderness has started to improve. No open ulcerations are seen. We'll continue with antibiotic therapy elevation and local care with the Silvadene wrap. This is currently reapplied. The patient has the history of extensive trauma to the leg, this injury has resulted in the development of some venous stasis and some lymphedema, which is now allowing the patients develop significant infection because of the prior injury. Patient is responding to antibiotic therapy and overall will be discharged home in the next few days. Blood cultures negative so far. Current Visit: Yes Status: Acute Code(s): L03.116 - CELLULITIS OF LEFT LOWER LIMB SNOMED Code(s): 993401511
[2017-10-18] MEDS: KETOROLAC 30 MG/ML 1 ML VIAL IVP PRN ×2 (00:42→15:11)
[2017-10-18] MEDS: PIPERACILLIN-TAZOBACTAM 3.375 GM in DEXTROSE/WATER 1 50ML.BAG IVPB SCH ×3 (00:43→15:16)
[2017-10-18] MEDS: VANCOMYCIN 2,250 MG in SODIUM CHLORIDE 0.9% 500 ML IVPB SCH ×3 (05:43→21:28)
[2017-10-18 07:54] LABS: Basophils % (A) 0 %; Eosinophils # (A) 0.3 k/uL (0-0.7); Eosinophils % (A) 4 %; HCT 36.4 % (39.0-53.0); HGB 11.6 gm/dL (13.0-17.5); Lymphocytes % (A) 14 %; MCH 28.4 pg (25.0-35.0); MCHC 31.7 g/dL (31.0-37.0); MCV 89.5 fL (80.0-100.0); Mean Platelet Volume 6.9; Monocytes # (A) 0.6 k/uL (0-1.0); Monocytes % (A) 8 %; Neutrophils # (A) 5.3 k/uL (1.3-7.7); Neutrophils % (A) 72 %; Platelet Count 218 k/uL (150-450); RBC 4.07 m/uL (4.30-5.90); RDW 13.2 % (11.5-15.5); WBC 7.4 k/uL (3.8-10.6)
[2017-10-18 08:05] LABS: Anion Gap 6 mmol/L; Blood Urea Nitrogen 12 mg/dL (9-20); Calcium 7.9 mg/dL (8.4-10.2); Carbon Dioxide 25 mmol/L (22-30); Chloride 107 mmol/L (98-107); Glucose 94 mg/dL (74-99); Sodium 138 mmol/L (137-145)
[2017-10-18] MEDS: clonazePAM 0.5 MG TAB PO SCH (09:04)
[2017-10-18] MEDS: HEPARIN SODIUM,PORCINE 5,000 UNIT/ML 1 ML VIAL SQ SCH ×2 (09:04→21:28)
[2017-10-18] MEDS: buPROPion XL 300 MG TAB.ER.24H PO SCH (09:04)
[2017-10-18] MEDS: FAMOTIDINE 20 MG TAB PO SCH ×2 (09:05→21:28)
[2017-10-18] MEDS: PANTOPRAZOLE 40 MG TABLET PO SCH (09:05)
[2017-10-18] MEDS: ESCITALOPRAM 20 MG TAB PO SCH (09:05)
[2017-10-18] MEDS: ACETAMINOPHEN TAB 325 MG TAB PO PRN ×2 (09:18→21:34)
[2017-10-18] MEDS: SILVER sulfADIAZINE Cream 400 GM 1 APPLIC APPLIC TOPICAL SCH (11:35)
--- NOTE | 2017-10-18 19:45 | P.PN ---
Subjective Progress Note Date: 10/18/17 This is a 46-year-old male patient who has had problems in the past with lower extremity cellulitis and nonhealing wounds. He was patient in the wound Center under the care of Dr. Trimble and discharge September 2016. He states he has had no problems with wound since that time until last week he bumped his schwab on the [employer] truck. He states it bled at the time we have added on he was feeling fever and chills and sweats and then became a low but better for a couple of days but on Saturday fever chills and sweats returned and he also vomited a couple times. He came into [facility] emergency center on Saturday. Chest x-ray showed no acute finding. Ultrasound of the lower extremity was negative for DVT. Patient was placed on Augmentin and discharged home. Patient has had worsening of redness and swelling to the left lower extremity and has continued to run fevers. He also has some nausea vomiting and he started having diarrhea after starting Augmentin. The diarrhea is a couple times a day only. Patient was started on Zosyn and vancomycin and admitted to the [facility] floor. On presentation, temperature was 101.3, leukocytosis of 12.9. Lactic acid 1.7, albumin 2.9. Urinalysis did show blood. Blood culture is showing no growth at 24 hours and urine cultures finalize with no growth. 10/17/2017 patient is feeling considerably better. Swelling and erythema have improved as has discomfort. 10/18/2017 patient is further improved. The swelling erythema and ascending erythema have all improved. Discomfort is improved also. No further fever. Objective - Vital Signs Vital signs: Vital Signs Temp 97.7 F 10/18/17 14:58 Pulse 79 10/18/17 15:03 Resp 18 10/18/17 15:03 BP 142/76 10/18/17 14:58 Pulse Ox 95 10/18/17 14:58 Intake & Output 10/18/17 10/18/17 10/19/17 06:59 18:59 06:59 Intake Total 1000 1230 Balance 1000 1230 Intake: Intake, IV Titration 150 550 Amount Piperacillin-Tazobactam 3 150 50 .375 gm In Dextrose/Water 1 50ml.bag @ 12.5 mls/hr IVPB Q8HR [facility] Rx#: [id number] Vancomycin 2,250 mg In 500 Sodium Chloride 0.9% 500 ml @ 167 mls/hr IVPB Q8H [facility] Rx#:[id number] Oral 850 680 Other: Voiding Method Toilet Toilet # Voids 3 4 - Exam Gen: This is a morbidly obese 46-year-old male. He is sitting up in bed and appears to be comfortable and in no acute distress. Noted that left lower leg is in a dependent position. HEENT: Head is atraumatic, normocephalic. Pupils equal, round. Sclerae is anicteric. Junk eloping. Mucous members of the mouth are moist. NECK: Supple. No JVD. No lymphadenopathy. No thyromegaly. LUNGS: Clear to auscultation. No wheezes or rhonchi. No intercostal retractions. HEART: Regular rate and rhythm. No murmur. ABDOMEN: Soft. Bowel sounds are present. No masses. No tenderness. EXTREMITIES: Dorsalis pedis is +2 bilaterally. Patient has erythema and edema to the pretibial and posterior calf area. There is a small scab on the pretibial area. No active drainage. The extensive warmth and erythema improved slightly today. Area of most intense tenderness is in the medial aspect of the calf no blistering or open ulcerations have occurred. The ascending erythema is further improved and no significant inguinal lymphadenopathy or tenderness is noted. NEUROLOGICAL: Patient is awake, alert and oriented x3. Cranial nerves 2 through 12 are grossly intact. - Labs CBC & Chem 7: 10/18/17 06:42 10/18/17 06:42 Labs: Abnormal Lab Results - Last 24 Hours (Table) 10/18/17 10/18/17 Range/Units 06:42 06:42 RBC 4.07 L (4.30-5.90) m/uL Hgb 11.6 L (13.0-17.5) gm/dL Hct 36.4 L (39.0-53.0) % Calcium 7.9 L (8.4-10.2) mg/dL Microbiology - Last 24 Hours (Table) 10/15/17 20:00 Blood Culture - Preliminary Blood No Growth after 48 hours Laboratory Results WBC 7.4 k/uL (3.8-10.6) 10/18/17 06:42 RBC 4.07 m/uL (4.30-5.90) L 10/18/17 06:42 Hgb 11.6 gm/dL (13.0-17.5) L 10/18/17 06:42 Hct 36.4 % (39.0-53.0) L 10/18/17 06:42 MCV 89.5 fL (80.0-100.0) 10/18/17 06:42 MCH 28.4 pg (25.0-35.0) 10/18/17 06:42 MCHC 31.7 g/dL (31.0-37.0) 10/18/17 06:42 RDW 13.2 % (11.5-15.5) 10/18/17 06:42 Plt Count 218 k/uL (150-450) 10/18/17 06:42 Neutrophils % 72 % 10/18/17 06:42 Lymphocytes % 14 % 10/18/17 06:42 Monocytes % 8 % 10/18/17 06:42 Eosinophils % 4 % 10/18/17 06:42 Basophils % 0 % 10/18/17 06:42 Neutrophils # 5.3 k/uL (1.3-7.7) 10/18/17 06:42 Lymphocytes # 1.0 k/uL (1.0-4.8) 10/18/17 06:42 Monocytes # 0.6 k/uL (0-1.0) 10/18/17 06:42 Eosinophils # 0.3 k/uL (0-0.7) 10/18/17 06:42 Basophils # 0.0 k/uL (0-0.2) 10/18/17 06:42 Hypochromasia Slight 10/17/17 07:58 Sodium 138 mmol/L (137-145) 10/18/17 06:42 Potassium 4.0 mmol/L (3.5-5.1) 10/18/17 06:42 Chloride 107 mmol/L (98-107) 10/18/17 06:42 Carbon Dioxide 25 mmol/L (22-30) 10/18/17 06:42 Anion Gap 6 mmol/L 10/18/17 06:42 BUN 12 mg/dL (9-20) 10/18/17 06:42 Creatinine 0.74 mg/dL (0.66-1.25) 10/18/17 06:42 Est GFR (CKD-EPI)AfAm >90 (>60 ml/min/1.73 sqM) 10/18/17 06:42 Est GFR (CKD-EPI)NonAf >90 (>60 ml/min/1.73 sqM) 10/18/17 06:42 Glucose 94 mg/dL (74-99) 10/18/17 06:42 Plasma Lactic Acid Tonny 1.7 mmol/L (0.7-2.0) 10/15/17 20:00 Calcium 7.9 mg/dL (8.4-10.2) L 10/18/17 06:42 Total Bilirubin 0.5 mg/dL (0.2-1.3) 10/16/17 07:10 AST 16 U/L (17-59) L 10/16/17 07:10 ALT 33 U/L (21-72) 10/16/17 07:10 Alkaline Phosphatase 71 U/L (38-126) 10/16/17 07:10 Total Protein 5.3 g/dL (6.3-8.2) L 10/16/17 07:10 Albumin 2.9 g/dL (3.5-5.0) L 10/16/17 07:10 Urine Color Yellow 10/16/17 12:44 Urine Appearance Turbid (Clear) 10/16/17 12:44 Urine pH 6.0 (5.0-8.0) 10/16/17 12:44 Ur Specific [place] 1.026 (1.001-1.035) 10/16/17 12:44 Urine Protein 1+ (Negative) H 10/16/17 12:44 Urine Glucose (UA) Negative (Negative) 10/16/17 12:44 Urine Ketones Negative (Negative) 10/16/17 12:44 Urine Blood Moderate (Negative) H 10/16/17 12:44 Urine Nitrite Negative (Negative) 10/16/17 12:44 Urine Bilirubin Negative (Negative) 10/16/17 12:44 Urine Urobilinogen <2.0 mg/dL (<2.0) 10/16/17 12:44 Ur Leukocyte Esterase Negative (Negative) 10/16/17 12:44 Urine RBC 30 /hpf (0-5) H 10/16/17 12:44 Urine WBC 8 /hpf (0-5) H 10/16/17 12:44 Amorphous Sediment Rare /hpf (None) H 10/16/17 12:44 Urine Bacteria Rare /hpf (None) H 10/16/17 12:44 Urine Mucus Occasional /hpf (None) H 10/16/17 12:44 Vancomycin Trough 16.0 ug/mL 10/17/17 13:13 Microbiology 10/15/17 20:00 Blood Blood Culture - Preliminary No Growth after 48 hours Assessment and Plan (1) Left leg cellulitis Narrative/Plan: This pleasant 46-year-old gentleman does have difficulties with obesity and a prior history of significant injury and cellulitis of the left lower extremity. He was treated to the wound center and did have negative pressure therapy treatment because of the extensive ulceration. He is a relatively well but does relate that he did have a small puncture-like injury to the left pretibial area. Within 48 hours of the injury he developed increasing amounts of swelling erythema and tenderness. He then developed high-grade fever chills and presented to Hospital of evidence of underlying sepsis and leukocytosis. The patient is evidence of the extensive cellulitis of left lower extremity which we treated with antibiotic therapy currently with piperacillin tazobactam and vancomycin pending culture results. Local wound care with the Silvadene therapy rolled gauze and wrap will be utilized and the patient is aware of the significant importance of elevation to help allow improvement of this cellulitis. The patient does have an ascending lymphangitis component and did have significant tenderness to the left inguinal lymph node which is now improved at this time. There are no other significant symptoms at this time. The patient will be treated with intravenous antibiotic therapy as well as local wound care and elevation expect rapid resolution. 10/17/2017 reveals the patient to have some improvement already today. Legs still very swollen but the intensity of the erythema in the extensive the tenderness has started to improve. No open ulcerations are seen. We'll continue with antibiotic therapy elevation and local care with the Silvadene wrap. This is currently reapplied. The patient has the history of extensive trauma to the leg, this injury has resulted in the development of some venous stasis and some lymphedema, which is now allowing the patients develop significant infection because of the prior injury. Patient is responding to antibiotic therapy and overall will be discharged home in the next few days. Blood cultures negative so far. 10/18/2017 patient has further improvement. He's doing well with elevation, Silvadene wrap, and antibiotic therapy. Will likely be ready for discharge home next day or so with ongoing local therapy, wrap and oral antibiotics to be determined at the time of discharge. Current Visit: Yes Status: Acute Code(s): L03.116 - CELLULITIS OF LEFT LOWER LIMB SNOMED Code(s): 032029227
[2017-10-19] MEDS: PIPERACILLIN-TAZOBACTAM 3.375 GM in DEXTROSE/WATER 1 50ML.BAG IVPB SCH ×3 (00:37→16:51)
[2017-10-19] MEDS: VANCOMYCIN 2,250 MG in SODIUM CHLORIDE 0.9% 500 ML IVPB SCH ×3 (05:19→21:50)
[2017-10-19 07:07] LABS: Basophils # (A) 0.1 k/uL (0-0.2); Basophils % (A) 1 %; Eosinophils # (A) 0.3 k/uL (0-0.7); Eosinophils % (A) 4 %; HGB 11.6 gm/dL (13.0-17.5); Lymphocytes % (A) 11 %; MCH 28.9 pg (25.0-35.0); MCHC 32.3 g/dL (31.0-37.0); MCV 89.5 fL (80.0-100.0); Mean Platelet Volume 6.7; Monocytes # (A) 0.7 k/uL (0-1.0); Monocytes % (A) 8 %; Neutrophils # (A) 6.3 k/uL (1.3-7.7); Neutrophils % (A) 75 %; Platelet Count 242 k/uL (150-450); RBC 4.02 m/uL (4.30-5.90); WBC 8.5 k/uL (3.8-10.6)
[2017-10-19 07:24] LABS: Anion Gap 4 mmol/L; Blood Urea Nitrogen 10 mg/dL (9-20); Calcium 8.3 mg/dL (8.4-10.2); Carbon Dioxide 25 mmol/L (22-30); Chloride 109 mmol/L (98-107); Glucose 97 mg/dL (74-99); Potassium 3.9 mmol/L (3.5-5.1); Sodium 138 mmol/L (137-145)
[2017-10-19] MEDS: buPROPion XL 300 MG TAB.ER.24H PO SCH (08:30)
[2017-10-19] MEDS: FAMOTIDINE 20 MG TAB PO SCH ×2 (08:30→20:10)
[2017-10-19] MEDS: clonazePAM 0.5 MG TAB PO SCH (08:30)
[2017-10-19] MEDS: ESCITALOPRAM 20 MG TAB PO SCH (08:30)
[2017-10-19] MEDS: HEPARIN SODIUM,PORCINE 5,000 UNIT/ML 1 ML VIAL SQ SCH ×2 (08:30→20:10)
--- NOTE | 2017-10-19 09:52 | PN ---
PROGRESS NOTE DATE OF SERVICE: 10/18/2017 This 46-year-old gentleman admitted with severe cellulitis on broad-spectrum IV antibiotics. Cultures are negative so far. The patient has improved significantly. Dr. Lacy is following the patient from the ID standpoint. No chest pain. No palpitations. No fever. EXAM: Alert and oriented x3. Pulse 88, blood pressure 140/82, respirations 16, temperature 98.4, pulse ox 94% room air. HEENT: Conjunctivae normal. NECK: No jugular venous distention. CARDIOVASCULAR: S1, S2. RESPIRATORY: Breath sounds diminished in the bases. No rhonchi, no crackles. ABDOMEN: Soft, nontender. No mass palpable. LEGS: No edema, no swelling. NERVOUS SYSTEM: Higher functions as mentioned. Moves all four limbs. No focal motor deficits. LYMPHATICS: No lymphadenopathy in the neck, axillae, groin. SKIN: No ulcer, rashes or bleeding. LABS: At this time shows WBC 7.2, hemoglobin 11.6. ASSESSMENT: 1. Acute left leg cellulitis with sepsis, present on admission, with failure of outpatient treatment. 2. Hyponatremia. 3. Increased WBC. 4. History of asthma. 5. History nephrolithiasis. 6. History of previous wound on both legs. 7. History of Methicillin-resistant Staphylococcus aureus. 8. History of lithotripsy. 9. Obesity with body mass index 48.8. 10.History of anxiety, panic disorder. RECOMMENDATIONS AND DISCUSSION: I recommend to continue current medication, continue to monitor. Symptomatic treatment. Otherwise at this time, broad-spectrum IV antibiotics. Guarded prognosis. Further recommendations to follow. MMODL / IJN: [id number] /
[2017-10-19] MEDS: SILVER sulfADIAZINE Cream 400 GM 1 APPLIC APPLIC TOPICAL SCH (11:24)
[2017-10-19] MEDS: ACETAMINOPHEN TAB 325 MG TAB PO PRN ×2 (14:28→23:40)
--- NOTE | 2017-10-19 16:33 | PN ---
PROGRESS NOTE DATE OF SERVICE: 10/19/2017 This 46-year-old gentleman who was admitted with acute left leg cellulitis with sepsis is being closely monitored. No chest pain or palpitation. No fever. PHYSICAL EXAMINATION: On exam, patient is alert and oriented x3. Pulse 74, blood pressure 117/69, respiration 20, temperature 98.2, pulse ox 95% on room air. HEENT: Conjunctivae normal. NECK: No jugular venous distention. CARDIOVASCULAR: S1 and S2 muffled. RESPIRATORY: Breath sounds diminished at the bases. A few scattered rhonchi. No crackles. Abdomen is soft, nontender. LEGS: Left leg cellulitis and erythema still persists, much improved now. NERVOUS SYSTEM; No focal deficits. LABS: WBC 8.5, hemoglobin 11.6. ASSESSMENT: 1. Acute left leg cellulitis with sepsis present on admission with failure of outpatient treatment. 2. Hyponatremia. 3. Increased WBC. 4. History of asthma. 5. History of nephrolithiasis/. 6. History of previous wounds of the both legs. 7. History of methicillin-resistant Staphylococcus aureus. 8. History of lithotripsy. 9. Obesity with body mass index 48.8. 10.History of anxiety, panic disorder. RECOMMENDATIONS AND DISCUSSION: Recommend to continue current medications and continue with monitoring and symptomatic treatment. Otherwise at this time I recommend continue the antibiotics, local treatment. Closely follow with Infectious Disease. Further recommendations to follow. MMODL / IJN: [id number] /
[2017-10-19 20:45] VITALS: RESP 20
--- NOTE | 2017-10-19 23:03 | P.PN ---
Subjective Progress Note Date: 10/19/17 This is a 46-year-old male patient who has had problems in the past with lower extremity cellulitis and nonhealing wounds. He was patient in the wound Center under the care of Dr. Trimble and discharge September 2016. He states he has had no problems with wound since that time until last week he bumped his schwab on the [employer] truck. He states it bled at the time we have added on he was feeling fever and chills and sweats and then became a low but better for a couple of days but on Saturday fever chills and sweats returned and he also vomited a couple times. He came into [facility] emergency center on Saturday. Chest x-ray showed no acute finding. Ultrasound of the lower extremity was negative for DVT. Patient was placed on Augmentin and discharged home. Patient has had worsening of redness and swelling to the left lower extremity and has continued to run fevers. He also has some nausea vomiting and he started having diarrhea after starting Augmentin. The diarrhea is a couple times a day only. Patient was started on Zosyn and vancomycin and admitted to the [facility] floor. On presentation, temperature was 101.3, leukocytosis of 12.9. Lactic acid 1.7, albumin 2.9. Urinalysis did show blood. Blood culture is showing no growth at 24 hours and urine cultures finalize with no growth. 10/17/2017 patient is feeling considerably better. Swelling and erythema have improved as has discomfort. 10/18/2017 patient is further improved. The swelling erythema and ascending erythema have all improved. Discomfort is improved also. No further fever. 10/19/2017 patient has had further improvement. Pain is much improved today including in the posterior aspect of the calf. The redness and ascending erythema have improved and he has not feeling poorly at this time. No further fevers or chills. Objective - Vital Signs Vital signs: Vital Signs Temp 98.3 F 10/19/17 20:10 Pulse 87 10/19/17 20:10 Resp 20 10/19/17 20:10 BP 137/68 10/19/17 20:10 Pulse Ox 95 10/19/17 20:10 Intake & Output 10/19/17 10/19/17 10/20/17 06:59 18:59 06:59 Intake Total 1140 2150 Balance 1140 2150 Weight 163.293 kg Intake: Intake, IV Titration 550 550 Amount Piperacillin-Tazobactam 3 50 50 .375 gm In Dextrose/Water 1 50ml.bag @ 12.5 mls/hr IVPB Q8HR PADMAJA Rx#: [id number] Vancomycin 2,250 mg In 500 500 Sodium Chloride 0.9% 500 ml @ 167 mls/hr IVPB Q8H PADMAJA Rx#:[id number] Oral 590 1600 Other: Voiding Method Toilet Toilet Toilet # Voids 1 1 1 - Exam Gen: This is a morbidly obese 46-year-old male. He is sitting up in bed and appears to be comfortable and in no acute distress. Noted that left lower leg is in a dependent position. HEENT: Head is atraumatic, normocephalic. Pupils equal, round. Sclerae is anicteric. Junk eloping. Mucous members of the mouth are moist. NECK: Supple. No JVD. No lymphadenopathy. No thyromegaly. LUNGS: Clear to auscultation. No wheezes or rhonchi. No intercostal retractions. HEART: Regular rate and rhythm. No murmur. ABDOMEN: Soft. Bowel sounds are present. No masses. No tenderness. EXTREMITIES: Dorsalis pedis is +2 bilaterally. Patient has erythema and edema to the pretibial and posterior calf area. There is a small scab on the pretibial area. No active drainage. The extensive warmth and erythema are markedly improved today. The posterior calf that was very tender is no longer tender and no open ulcers or blisters are seen. The ascending erythema is further improved and no significant inguinal lymphadenopathy or tenderness is noted. NEUROLOGICAL: Patient is awake, alert and oriented x3. - Labs CBC & Chem 7: 10/19/17 06:27 10/19/17 06:27 Labs: Abnormal Lab Results - Last 24 Hours (Table) 10/19/17 10/19/17 Range/Units 06:27 06:27 RBC 4.02 L (4.30-5.90) m/uL Hgb 11.6 L (13.0-17.5) gm/dL Hct 36.0 L (39.0-53.0) % Chloride 109 H (98-107) mmol/L Calcium 8.3 L (8.4-10.2) mg/dL Microbiology - Last 24 Hours (Table) 10/15/17 20:00 Blood Culture - Preliminary Blood No Growth after 96 hours Laboratory Results WBC 8.5 k/uL (3.8-10.6) 10/19/17 06:27 RBC 4.02 m/uL (4.30-5.90) L 10/19/17 06:27 Hgb 11.6 gm/dL (13.0-17.5) L 10/19/17 06:27 Hct 36.0 % (39.0-53.0) L 10/19/17 06:27 MCV 89.5 fL (80.0-100.0) 10/19/17 06:27 MCH 28.9 pg (25.0-35.0) 10/19/17 06:27 MCHC 32.3 g/dL (31.0-37.0) 10/19/17 06:27 RDW 13.0 % (11.5-15.5) 10/19/17 06:27 Plt Count 242 k/uL (150-450) 10/19/17 06:27 Neutrophils % 75 % 10/19/17 06:27 Lymphocytes % 11 % 10/19/17 06:27 Monocytes % 8 % 10/19/17 06:27 Eosinophils % 4 % 10/19/17 06:27 Basophils % 1 % 10/19/17 06:27 Neutrophils # 6.3 k/uL (1.3-7.7) 10/19/17 06:27 Lymphocytes # 1.0 k/uL (1.0-4.8) 10/19/17 06:27 Monocytes # 0.7 k/uL (0-1.0) 10/19/17 06:27 Eosinophils # 0.3 k/uL (0-0.7) 10/19/17 06:27 Basophils # 0.1 k/uL (0-0.2) 10/19/17 06:27 Hypochromasia Slight 10/17/17 07:58 Sodium 138 mmol/L (137-145) 10/19/17 06:27 Potassium 3.9 mmol/L (3.5-5.1) 10/19/17 06:27 Chloride 109 mmol/L (98-107) H 10/19/17 06:27 Carbon Dioxide 25 mmol/L (22-30) 10/19/17 06:27 Anion Gap 4 mmol/L 10/19/17 06:27 BUN 10 mg/dL (9-20) 10/19/17 06:27 Creatinine 0.75 mg/dL (0.66-1.25) 10/19/17 06:27 Est GFR (CKD-EPI)AfAm >90 (>60 ml/min/1.73 sqM) 10/19/17 06:27 Est GFR (CKD-EPI)NonAf >90 (>60 ml/min/1.73 sqM) 10/19/17 06:27 Glucose 97 mg/dL (74-99) 10/19/17 06:27 Plasma Lactic Acid Tonny 1.7 mmol/L (0.7-2.0) 10/15/17 20:00 Calcium 8.3 mg/dL (8.4-10.2) L 10/19/17 06:27 Total Bilirubin 0.5 mg/dL (0.2-1.3) 10/16/17 07:10 AST 16 U/L (17-59) L 10/16/17 07:10 ALT 33 U/L (21-72) 10/16/17 07:10 Alkaline Phosphatase 71 U/L (38-126) 10/16/17 07:10 Total Protein 5.3 g/dL (6.3-8.2) L 10/16/17 07:10 Albumin 2.9 g/dL (3.5-5.0) L 10/16/17 07:10 Urine Color Yellow 10/16/17 12:44 Urine Appearance Turbid (Clear) 10/16/17 12:44 Urine pH 6.0 (5.0-8.0) 10/16/17 12:44 Ur Specific [place] 1.026 (1.001-1.035) 10/16/17 12:44 Urine Protein 1+ (Negative) H 10/16/17 12:44 Urine Glucose (UA) Negative (Negative) 10/16/17 12:44 Urine Ketones Negative (Negative) 10/16/17 12:44 Urine Blood Moderate (Negative) H 10/16/17 12:44 Urine Nitrite Negative (Negative) 10/16/17 12:44 Urine Bilirubin Negative (Negative) 10/16/17 12:44 Urine Urobilinogen <2.0 mg/dL (<2.0) 10/16/17 12:44 Ur Leukocyte Esterase Negative (Negative) 10/16/17 12:44 Urine RBC 30 /hpf (0-5) H 10/16/17 12:44 Urine WBC 8 /hpf (0-5) H 10/16/17 12:44 Amorphous Sediment Rare /hpf (None) H 10/16/17 12:44 Urine Bacteria Rare /hpf (None) H 10/16/17 12:44 Urine Mucus Occasional /hpf (None) H 10/16/17 12:44 Vancomycin Trough 16.0 ug/mL 10/17/17 13:13 Microbiology 10/15/17 20:00 Blood Blood Culture - Preliminary No Growth after 96 hours Microbiology 10/15/17 20:00 Blood Blood Culture - Preliminary No Growth after 96 hours Assessment and Plan (1) Left leg cellulitis Narrative/Plan: This pleasant 46-year-old gentleman does have difficulties with obesity and a prior history of significant injury and cellulitis of the left lower extremity. He was treated to the wound center and did have negative pressure therapy treatment because of the extensive ulceration. He is a relatively well but does relate that he did have a small puncture-like injury to the left pretibial area. Within 48 hours of the injury he developed increasing amounts of swelling erythema and tenderness. He then developed high-grade fever chills and presented to Hospital of evidence of underlying sepsis and leukocytosis. The patient is evidence of the extensive cellulitis of left lower extremity which we treated with antibiotic therapy currently with piperacillin tazobactam and vancomycin pending culture results. Local wound care with the Silvadene therapy rolled gauze and wrap will be utilized and the patient is aware of the significant importance of elevation to help allow improvement of this cellulitis. The patient does have an ascending lymphangitis component and did have significant tenderness to the left inguinal lymph node which is now improved at this time. There are no other significant symptoms at this time. The patient will be treated with intravenous antibiotic therapy as well as local wound care and elevation expect rapid resolution. 10/17/2017 reveals the patient to have some improvement already today. Legs still very swollen but the intensity of the erythema in the extensive the tenderness has started to improve. No open ulcerations are seen. We'll continue with antibiotic therapy elevation and local care with the Silvadene wrap. This is currently reapplied. The patient has the history of extensive trauma to the leg, this injury has resulted in the development of some venous stasis and some lymphedema, which is now allowing the patients develop significant infection because of the prior injury. Patient is responding to antibiotic therapy and overall will be discharged home in the next few days. Blood cultures negative so far. 10/18/2017 patient has further improvement. He's doing well with elevation, Silvadene wrap, and antibiotic therapy. Will likely be ready for discharge home next day or so with ongoing local therapy, wrap and oral antibiotics to be determined at the time of discharge. 10/19/2017 the patient has had further significant improvement of the severe cellulitis to the left leg. The posterior aspect of the calf that was still erythematous and very tender is now much improved. Ascending erythema is also nearly resolved. Patient likely ready for discharge home in the morning if he has no further difficulties. Continue with the Silvadene wrap and will arrange for antibiotic therapy at home. Current Visit: Yes Status: Acute Code(s): L03.116 - CELLULITIS OF LEFT LOWER LIMB SNOMED Code(s): 819075616
[2017-10-20] MEDS: PIPERACILLIN-TAZOBACTAM 3.375 GM in DEXTROSE/WATER 1 50ML.BAG IVPB SCH ×2 (01:07→09:03)
[2017-10-20] MEDS ORDERED: VANCOMYCIN TROUGH DUE 1 EACH MISC MISCELLANE ONE (05:00)
[2017-10-20 05:27] VITALS: BP 134/69; PULSE 80; TEMP 97
[2017-10-20] MEDS: VANCOMYCIN 2,250 MG in SODIUM CHLORIDE 0.9% 500 ML IVPB SCH (05:50)
[2017-10-20 06:02] LABS: Anion Gap 6 mmol/L; Blood Urea Nitrogen 10 mg/dL (9-20); Calcium 8.5 mg/dL (8.4-10.2); Carbon Dioxide 25 mmol/L (22-30); Chloride 108 mmol/L (98-107); Glucose 116 mg/dL (74-99); Potassium 4.2 mmol/L (3.5-5.1); Sodium 139 mmol/L (137-145)
[2017-10-20] MEDS: FAMOTIDINE 20 MG TAB PO SCH (07:30)
[2017-10-20] MEDS: HEPARIN SODIUM,PORCINE 5,000 UNIT/ML 1 ML VIAL SQ SCH (07:30)
[2017-10-20] MEDS: ESCITALOPRAM 20 MG TAB PO SCH (07:30)
[2017-10-20] MEDS: buPROPion XL 300 MG TAB.ER.24H PO SCH (07:30)
[2017-10-20] MEDS: clonazePAM 0.5 MG TAB PO SCH (07:30)
[2017-10-20] MEDS: SILVER sulfADIAZINE Cream 400 GM 1 APPLIC APPLIC TOPICAL SCH (07:32)
[2017-10-20 08:11] LABS: Basophils # (A) 0.1 k/uL (0-0.2); Basophils % (A) 1 %; Eosinophils # (A) 0.3 k/uL (0-0.7); Eosinophils % (A) 3 %; HCT 36.3 % (39.0-53.0); HGB 11.6 gm/dL (13.0-17.5); Lymphocytes # (A) 0.9 k/uL (1.0-4.8); Lymphocytes % (A) 9 %; MCH 28.7 pg (25.0-35.0); MCHC 32.1 g/dL (31.0-37.0); MCV 89.4 fL (80.0-100.0); Mean Platelet Volume 6.9; Monocytes # (A) 0.8 k/uL (0-1.0); Monocytes % (A) 8 %; Neutrophils # (A) 7.9 k/uL (1.3-7.7); Neutrophils % (A) 79 %; Platelet Count 279 k/uL (150-450); RBC 4.06 m/uL (4.30-5.90); RDW 13.1 % (11.5-15.5); WBC 10.1 k/uL (3.8-10.6)
[2017-10-20] MEDS: ACETAMINOPHEN TAB 325 MG TAB PO PRN (12:24)
[2017-10-20] MEDS ORDERED: VANCOMYCIN 2,000 MG in SODIUM CHLORIDE 0.9% 500 ML IVPB SCH (16:00)
--- NOTE | 2017-10-20 16:58 | P.PN ---
Subjective Progress Note Date: 10/20/17 This is a 46-year-old male patient who has had problems in the past with lower extremity cellulitis and nonhealing wounds. He was patient in the wound Center under the care of Dr. Trimble and discharge September 2016. He states he has had no problems with wound since that time until last week he bumped his schwab on the [employer] truck. He states it bled at the time we have added on he was feeling fever and chills and sweats and then became a low but better for a couple of days but on Saturday fever chills and sweats returned and he also vomited a couple times. He came into [facility] emergency center on Saturday. Chest x-ray showed no acute finding. Ultrasound of the lower extremity was negative for DVT. Patient was placed on Augmentin and discharged home. Patient has had worsening of redness and swelling to the left lower extremity and has continued to run fevers. He also has some nausea vomiting and he started having diarrhea after starting Augmentin. The diarrhea is a couple times a day only. Patient was started on Zosyn and vancomycin and admitted to the [facility] floor. On presentation, temperature was 101.3, leukocytosis of 12.9. Lactic acid 1.7, albumin 2.9. Urinalysis did show blood. Blood culture is showing no growth at 24 hours and urine cultures finalize with no growth. 10/17/2017 patient is feeling considerably better. Swelling and erythema have improved as has discomfort. 10/18/2017 patient is further improved. The swelling erythema and ascending erythema have all improved. Discomfort is improved also. No further fever. 10/19/2017 patient has had further improvement. Pain is much improved today including in the posterior aspect of the calf. The redness and ascending erythema have improved and he has not feeling poorly at this time. No further fevers or chills. 10/20/2017 patient is now much improved. The pain and swelling improved. However there is an area on the left anterior tibial area that appears to be fluctuant. Objective - Vital Signs Vital signs: Vital Signs Temp 97 F L 10/20/17 05:26 Pulse 80 10/20/17 08:15 Resp 20 10/20/17 08:15 BP 134/69 10/20/17 05:26 Pulse Ox 96 10/20/17 05:26 Intake & Output 10/19/17 10/20/17 10/20/17 18:59 06:59 18:59 Intake Total 2150 1190 Balance 2150 1190 Weight 163.293 kg Intake: Intake, IV Titration 550 550 Amount Piperacillin-Tazobactam 3 50 50 .375 gm In Dextrose/Water 1 50ml.bag @ 12.5 mls/hr IVPB Q8HR PADMAJA Rx#: [id number] Vancomycin 2,000 mg In 500 Sodium Chloride 0.9% 500 ml @ 167 mls/hr IVPB Q8H PADMAAJ Rx#:[id number] Vancomycin 2,250 mg In 500 Sodium Chloride 0.9% 500 ml @ 167 mls/hr IVPB Q8H PADMAJA Rx#:[id number] Oral 1600 640 Other: Voiding Method Toilet Toilet Toilet # Voids 1 1 - Exam Gen: This is a morbidly obese 46-year-old male. He is sitting up in bed and appears to be comfortable and in no acute distress. Noted that left lower leg is in a dependent position. HEENT: Head is atraumatic, normocephalic. Pupils equal, round. Sclerae is anicteric. Junk eloping. Mucous members of the mouth are moist. NECK: Supple. No JVD. No lymphadenopathy. No thyromegaly. LUNGS: Clear to auscultation. No wheezes or rhonchi. No intercostal retractions. HEART: Regular rate and rhythm. No murmur. ABDOMEN: Soft. Bowel sounds are present. No masses. No tenderness. EXTREMITIES: Dorsalis pedis is +2 bilaterally. Patient has erythema and edema to the pretibial and posterior calf area. There is a small scab on the pretibial area. No active drainage. The extensive warmth and erythema are markedly improved today. The posterior calf that was very tender is no longer tender on the anterior tibial surfaces small area of fluctuance, area is cleansed with alcohol pad and then 18-gauge needle with a 10 mL syringe is utilized in for cc of grossly purulent material is easily aspirated from the site, after which he has significant increase in discomfort to the area that was becoming uncomfortable with the wrap over it. Overall he is markedly improved. The ascending erythema is further improved and no significant inguinal lymphadenopathy or tenderness is noted. NEUROLOGICAL: Patient is awake, alert and oriented x3. - Labs CBC & Chem 7: 10/20/17 07:02 10/20/17 05:25 Labs: Abnormal Lab Results - Last 24 Hours (Table) 10/20/17 10/20/17 Range/Units 05:25 07:02 RBC 4.06 L (4.30-5.90) m/uL Hgb 11.6 L (13.0-17.5) gm/dL Hct 36.3 L (39.0-53.0) % Neutrophils # 7.9 H (1.3-7.7) k/uL Lymphocytes # 0.9 L (1.0-4.8) k/uL Chloride 108 H (98-107) mmol/L Glucose 116 H (74-99) mg/dL Microbiology - Last 24 Hours (Table) 10/15/17 20:00 Blood Culture - Preliminary Blood No Growth after 96 hours Laboratory Results WBC 10.1 k/uL (3.8-10.6) 10/20/17 07:02 RBC 4.06 m/uL (4.30-5.90) L 10/20/17 07:02 Hgb 11.6 gm/dL (13.0-17.5) L 10/20/17 07:02 Hct 36.3 % (39.0-53.0) L 10/20/17 07:02 MCV 89.4 fL (80.0-100.0) 10/20/17 07:02 MCH 28.7 pg (25.0-35.0) 10/20/17 07:02 MCHC 32.1 g/dL (31.0-37.0) 10/20/17 07:02 RDW 13.1 % (11.5-15.5) 10/20/17 07:02 Plt Count 279 k/uL (150-450) 10/20/17 07:02 Neutrophils % 79 % 10/20/17 07:02 Lymphocytes % 9 % 10/20/17 07:02 Monocytes % 8 % 10/20/17 07:02 Eosinophils % 3 % 10/20/17 07:02 Basophils % 1 % 10/20/17 07:02 Neutrophils # 7.9 k/uL (1.3-7.7) H 10/20/17 07:02 Lymphocytes # 0.9 k/uL (1.0-4.8) L 10/20/17 07:02 Monocytes # 0.8 k/uL (0-1.0) 10/20/17 07:02 Eosinophils # 0.3 k/uL (0-0.7) 10/20/17 07:02 Basophils # 0.1 k/uL (0-0.2) 10/20/17 07:02 Hypochromasia Slight 10/17/17 07:58 Sodium 139 mmol/L (137-145) 10/20/17 05:25 Potassium 4.2 mmol/L (3.5-5.1) 10/20/17 05:25 Chloride 108 mmol/L (98-107) H 10/20/17 05:25 Carbon Dioxide 25 mmol/L (22-30) 10/20/17 05:25 Anion Gap 6 mmol/L 10/20/17 05:25 BUN 10 mg/dL (9-20) 10/20/17 05:25 Creatinine 0.84 mg/dL (0.66-1.25) 10/20/17 05:25 Est GFR (CKD-EPI)AfAm >90 (>60 ml/min/1.73 sqM) 10/20/17 05:25 Est GFR (CKD-EPI)NonAf >90 (>60 ml/min/1.73 sqM) 10/20/17 05:25 Glucose 116 mg/dL (74-99) H 10/20/17 05:25 Plasma Lactic Acid Tonny 1.7 mmol/L (0.7-2.0) 10/15/17 20:00 Calcium 8.5 mg/dL (8.4-10.2) 10/20/17 05:25 Total Bilirubin 0.5 mg/dL (0.2-1.3) 10/16/17 07:10 AST 16 U/L (17-59) L 10/16/17 07:10 ALT 33 U/L (21-72) 10/16/17 07:10 Alkaline Phosphatase 71 U/L (38-126) 10/16/17 07:10 Total Protein 5.3 g/dL (6.3-8.2) L 10/16/17 07:10 Albumin 2.9 g/dL (3.5-5.0) L 10/16/17 07:10 Urine Color Yellow 10/16/17 12:44 Urine Appearance Turbid (Clear) 10/16/17 12:44 Urine pH 6.0 (5.0-8.0) 10/16/17 12:44 Ur Specific [place] 1.026 (1.001-1.035) 10/16/17 12:44 Urine Protein 1+ (Negative) H 10/16/17 12:44 Urine Glucose (UA) Negative (Negative) 10/16/17 12:44 Urine Ketones Negative (Negative) 10/16/17 12:44 Urine Blood Moderate (Negative) H 10/16/17 12:44 Urine Nitrite Negative (Negative) 10/16/17 12:44 Urine Bilirubin Negative (Negative) 10/16/17 12:44 Urine Urobilinogen <2.0 mg/dL (<2.0) 10/16/17 12:44 Ur Leukocyte Esterase Negative (Negative) 10/16/17 12:44 Urine RBC 30 /hpf (0-5) H 10/16/17 12:44 Urine WBC 8 /hpf (0-5) H 10/16/17 12:44 Amorphous Sediment Rare /hpf (None) H 10/16/17 12:44 Urine Bacteria Rare /hpf (None) H 10/16/17 12:44 Urine Mucus Occasional /hpf (None) H 10/16/17 12:44 Vancomycin Trough 19.0 ug/mL 10/20/17 05:25 Microbiology 10/15/17 20:00 Blood Blood Culture - Preliminary No Growth after 96 hours Assessment and Plan (1) Left leg cellulitis Narrative/Plan: This pleasant 46-year-old gentleman does have difficulties with obesity and a prior history of significant injury and cellulitis of the left lower extremity. He was treated to the wound center and did have negative pressure therapy treatment because of the extensive ulceration. He is a relatively well but does relate that he did have a small puncture-like injury to the left pretibial area. Within 48 hours of the injury he developed increasing amounts of swelling erythema and tenderness. He then developed high-grade fever chills and presented to Hospital of evidence of underlying sepsis and leukocytosis. The patient is evidence of the extensive cellulitis of left lower extremity which we treated with antibiotic therapy currently with piperacillin tazobactam and vancomycin pending culture results. Local wound care with the Hopedene therapy rolled gauze and wrap will be utilized and the patient is aware of the significant importance of elevation to help allow improvement of this cellulitis. The patient does have an ascending lymphangitis component and did have significant tenderness to the left inguinal lymph node which is now improved at this time. There are no other significant symptoms at this time. The patient will be treated with intravenous antibiotic therapy as well as local wound care and elevation expect rapid resolution. 10/17/2017 reveals the patient to have some improvement already today. Legs still very swollen but the intensity of the erythema in the extensive the tenderness has started to improve. No open ulcerations are seen. We'll continue with antibiotic therapy elevation and local care with the Silvadene wrap. This is currently reapplied. The patient has the history of extensive trauma to the leg, this injury has resulted in the development of some venous stasis and some lymphedema, which is now allowing the patients develop significant infection because of the prior injury. Patient is responding to antibiotic therapy and overall will be discharged home in the next few days. Blood cultures negative so far. 10/18/2017 patient has further improvement. He's doing well with elevation, Silvadene wrap, and antibiotic therapy. Will likely be ready for discharge home next day or so with ongoing local therapy, wrap and oral antibiotics to be determined at the time of discharge. 10/19/2017 the patient has had further significant improvement of the severe cellulitis to the left leg. The posterior aspect of the calf that was still erythematous and very tender is now much improved. Ascending erythema is also nearly resolved. Patient likely ready for discharge home in the morning if he has no further difficulties. Continue with the Silvadene wrap and will arrange for antibiotic therapy at home. 10/20/2017 the patient is now much improved. Ready for discharge home today. A small area of abscess has formed on the pretibial area that was aspirated. This is on telemetry for culture to ensure adequate choice of antibiotic therapy if there is any further difficulties. Given that he was on Augmentin as an outpatient with worsening we utilize tetracycline for home especially since there is evidence of a sulfa ALLERGY. He will follow-up with his primary care physician appears to be back to work on Saturday. Status: Acute Code(s): L03.116 - CELLULITIS OF LEFT LOWER LIMB SNOMED Code(s ): 752360687
--- NOTE | 2017-10-20 19:41 | DS ---
DISCHARGE SUMMARY FINAL DIAGNOSES: 1. Acute left leg cellulitis with sepsis present on admission with failure of outpatient treatment. 2. Hyponatremia. 3. Increased WBC. 4. History of asthma. 5. History of nephrolithiasis. 6. History of previous wounds on both legs. 7. History of Methicillin-resistant Staphylococcus aureus. 8. History of lithotripsy. 9. Obesity with body mass index 48.8. 10.History of anxiety/panic disorder. DISCHARGE DISPOSITION: The patient is being discharged in stable condition with guarded prognosis. HISTORY: This 45-year-old gentleman with a past medical history of multiple medical problems was admitted with acute left leg cellulitis and sepsis. Patient treated with IV antibiotics. Patient improved significantly. Dr. Lacy saw the patient. White count normalized at 10.1. On exam, vital signs are stable. Cardiovascular S1, S2. Abdomen is soft. Bowel sounds noted. Minimal erythema of the left leg present. Please note cultures are negative. DISCHARGE ADVICE AND MEDICATIONS: 1. Diet is cardiac diet. 2. Activity limited until followup. 3. Follow with Dr. Knapp in 2-3 days. Follow up with Infectious Disease as recommended. MEDICATIONS: 1. Wellbutrin XL 300 mg p.o. daily. 2. Klonopin 0.5 mg q.a.m. 3. Lexapro 20 mg p.o. daily. 4. Zestril 10 mg p.o. daily. 5. Tylenol p.r.n. 6. Doxycycline 100 mg p.o. b.i.d. for 10 days. Once again, the patient is being discharged in stable with guarded prognosis. MMODL / IJN: [id number] /
== END 2017-10-20 13:45 | disposition home or self-care (01) | DRG 872 ==
LOC: EC 18:51 → 5MS5E 21:07
PROVIDERS: ADMIT Hospitalist; ATTEND Hospitalist
DX: A41.9 Sepsis, unspecified organism (principal); E87.1 Hypo-osmolality and hyponatremia; L03.116 Cellulitis of left lower limb; Z68.42 Body mass index [BMI] 45.0-49.9, adult; E66.9 Obesity, unspecified; F41.0 Panic disorder [episodic paroxysmal anxiety]; I87.8 Other specified disorders of veins; J45.909 Unspecified asthma, uncomplicated; N20.0 Calculus of kidney; Z79.899 Other long term (current) drug therapy; Z86.14 Personal history of Methicillin resistant Staphylococcus aureus infection; Z87.442 Personal history of urinary calculi; Z87.891 Personal history of nicotine dependence; Z88.2 Allergy status to sulfonamides
CPT/HCPCS: 36415; 80048; 80053; 80202; 81001; 83605; 85025; 87040; 87070; 87205; 96365; 96366; 99284